=== PATIENT | female | born 1955 | race African-American/Black ===

== ENCOUNTER → 2016-12-19 | Outpatient (CLI) | payer MEDICARE, OTHER ==
[~2016-12-19] MED LIST: ABAC1TAB3 PO; ALBUAER3 INH; AMIT50TA3 PO; BENA25TA3 PO; BENA25TA6 PO; CENT50TA PO; FERR324T4 PO; FLUT50SP EACH NARE; GENTDRO EACH EYE; HYDR-3675 PO; IRON27TA PO; LOSA25TA PO; ULTR50TA PO; VITA150T PO; VITATAB11 PO
[2016-12-19 07:45] LABS: HEMATOCRIT 37.3 % (35.0-46.0); MEAN CELL VOLUME 81.9 FL (80.0-100.0); MEAN CORPUSCULAR HEMOGLOBIN 25.7 PG (27.0-34.0); MEAN CORPUSCULAR HGB CONC 31.4 % (32.0-36.0); PLATELET COUNT 226 TH/MM3 (150-450); RED BLOOD COUNT 4.55 MIL/MM3 (4.00-5.30); RED CELL DISTRIBUTION WIDTH 14.7 % (11.6-17.2); WHITE BLOOD COUNT 3.2 TH/MM3 (4.0-11.0)
[2016-12-19 08:02] LABS: ALT (GPT) 22 U/L (10-53); ANION GAP 7 MEQ/L (5-15); AST (GOT) 16 U/L (15-37); BICARBONATE 28.2 MEQ/L (21.0-32.0); BLOOD UREA NITROGEN 14 MG/DL (7-18); CHLORIDE 103 MEQ/L (98-107); GLOMERULAR FILTRATION RATE 55 ML/MIN (>89); GLUCOSE,FASTING 95 MG/DL (74-99); POTASSIUM 3.8 MEQ/L (3.5-5.1); SODIUM (NA) 138 MEQ/L (136-145)
[2016-12-19 08:03] LABS: HEMO FLAGS AUTO DIFF
[2016-12-19 08:04] LABS: ALKALINE PHOSPHATASE 74 U/L (45-117); HDL CHOLESTEROL 69.9 MG/DL (40.0-60.0); LDL CHOLESTEROL 68 MG/DL (0-99); TOTAL BILIRUBIN ADULT 0.5 MG/DL (0.2-1.0)
[2016-12-19 09:21] LABS: NEUTROPHIL # MANUAL DIFF 1.2 TH/MM3 (1.8-7.7); POLYS (SEG NEUTROPHILS) 36 % (16-70); WBC DIFF SAMPLE 100
[2016-12-19 09:22] LABS: PLATELET ESTIMATE SMEAR NORMAL (NORMAL); PLATELET MORPHOLOGY NORMAL (NORMAL); SCAN/DIFF FINAL DIFF MANUAL
[2016-12-19 11:08] LABS: RAPID PLASMA REAGIN SCREEN NON-REACTIVE (NON-REACTVE)
[2016-12-19 11:57] LABS: HEPATITIS B SURFACE ANTIBODY 2.7 mIU/mL
[2016-12-20 19:52] LABS: CD4/CD8 RATIO 1.3 (0.86-5.00)
[2016-12-21 15:03] LABS: MITOGEN MINUS NIL RESULT >10.00 IU/mL (()); NIL RESULT 0.03 IU/mL (()); QUANTIFERON TB GOLD RESULT Negative (Negative)
[2016-12-22 03:50] LABS: HIV RNA COPIES LESS THAN 20.0 (()); HIV RNA LOG COPIES LESS THAN 1.30 (())
== END ==
LOC: CLAB 06:48
PROVIDERS: ATTEND Internal Medicine Infectious Disease
DX: J44.9 Chronic obstructive pulmonary disease, unspecified (principal); B20 Human immunodeficiency virus [HIV] disease; E55.9 Vitamin D deficiency, unspecified; I12.9 Hypertensive chronic kidney disease with stage 1 through stage 4 chronic kidney disease, or unspecified chronic kidney disease; N18.2 Chronic kidney disease, stage 2 (mild); Z01.419 Encounter for gynecological examination (general) (routine) without abnormal findings; Z79.2 Long term (current) use of antibiotics
CPT/HCPCS: 36415; 80053; 80061; 82306; 85007; 85027; 86317; 86355; 86357; 86359; 86360; 86480; 86592; 86695; 86696; 86777; 86778; 87536

== ENCOUNTER → 2016-12-28 | Outpatient (CLI) | payer MEDICARE, OTHER ==
[2016-12-28 08:12] LABS: BASOPHIL % 0.4 % (0.0-2.0); HEMATOCRIT 34.5 % (35.0-46.0); HEMO FLAGS DIFF FINAL; LYMPH % 54.9 % (9.0-44.0); LYMPHOCYTE # 1.8 TH/MM3 (1.0-4.8); MEAN CELL VOLUME 81.8 FL (80.0-100.0); MEAN CORPUSCULAR HEMOGLOBIN 26.6 PG (27.0-34.0); MEAN CORPUSCULAR HGB CONC 32.5 % (32.0-36.0); MONO % 11.3 % (0.0-8.0); NEUT % 32.4 % (16.0-70.0); PLATELET COUNT 179 TH/MM3 (150-450); RED BLOOD COUNT 4.22 MIL/MM3 (4.00-5.30); RED CELL DISTRIBUTION WIDTH 15.3 % (11.6-17.2); WHITE BLOOD COUNT 3.2 TH/MM3 (4.0-11.0)
[2016-12-28 08:18] LABS: BLOOD, URINE NEG (NEG); GLUCOSE,URINE NEG (NEG); KETONE, URINE NEG (NEG); NITRITE,URINE NEG (NEG); SQUAMOUS EPITHELIAL CELL URINE <1 /hpf (0-5); URINE COLOR YELLOW (YELLW/STRAW)
[2016-12-28 08:34] LABS: BICARBONATE 29.7 MEQ/L (21.0-32.0); POTASSIUM 3.9 MEQ/L (3.5-5.1)
== END ==
LOC: CLAB 07:37
PROVIDERS: ATTEND Internal Medicine Nephrology
DX: N18.3 Chronic kidney disease, stage 3 (moderate) (principal)
CPT/HCPCS: 36415; 80048; 81001; 85025

== ENCOUNTER 2017-03-03 01:38 | Observation (INO) | payer MEDICARE, OTHER ==
[~2017-03-03] VITALS: Ht 175.3 cm; Wt 72.9 kg
[2017-03-03] VITALS (9 sets, daily range): BP systolic 136–163; BP diastolic 84–95; PULSE 78–98; RESP 16–18; TEMP 96.4–98; O2SAT 98–100
[~2017-03-03 01:38] MED LIST changes: -BENA25TA3 PO; -FERR324T4 PO; -ULTR50TA PO; -VITATAB11 PO
[2017-03-03] MEDS ORDERED: REST0.05 EACH EYE (01:50)
[2017-03-03] MEDS ORDERED: ONDANSETRON HCL 4 MG/2 ML VIAL IVP ONE (02:00)
[2017-03-03] MEDS ORDERED: SODIUM CHLORID 0.9% 500 ML INJ 500 ML IV ONE (02:00)
[2017-03-03] MEDS ORDERED: SODIUM CHLORIDE 0.9% FLUSH 10 ML FLUSH IV FLUSH PRN ×2 (02:00→07:30)
[2017-03-03] MEDS ORDERED: MORPHINE SULFATE 4 MG/ML INJ IV PUSH ONE (02:00)
[2017-03-03] MEDS ORDERED: MORPHINE SULFATE 8 MG/ML INJ ONE (02:02)
--- NOTE | 2017-03-03 02:04 | PD ---
HPI Chief Complaint: Abdominal Pain Time Seen by Provider: 01:57 Travel History International Travel<30 days: No Contact w/Intl Traveler<30days: No Traveled to known affect area: No History of Present Illness HPI Patient is a 61-year-old female presents emergency department for evaluation of nausea vomiting and epigastric abdominal pain. Patient states pain is been going on for the past few hours after eating tater tots. is here who also a tater tots and is asymptomatic. Patient is been having vomiting mostly clear but minimally green tinted. States is never happened to her before. States she does have a history of some difficulty stooling and has to press on her left side: When she stools. She denies any diarrhea denies any fever. Denies any chest pain or shortness of breath. States the pain radiates to her back and her right shoulder. PFSH Past Medical History Anemia: Yes Arthritis: Yes Blood Disorders: Yes Anxiety: Yes Cardiovascular Problems: Yes COPD: Yes Diminished Hearing: No Hypertension: Yes Immune Disorder: Yes (HIV+) Musculoskeletal: Yes Neurologic: Yes (idiopathic progressive polyneuropathy) Respiratory: Yes Pneumonia: Yes Menopausal: Yes Past Surgical History Abdominal Surgery: Yes (EXP LAP) Section: Yes Other Surgery: Yes (right axilla biopsy) Social History Alcohol Use: Yes (OCCASSIONAL) Tobacco Use: No (quit 2009) Substance Use: No Allergies-Medications (Allergen,Severity, Reaction): Coded Allergies: Dilaudid (Verified Allergy, Mild, 03/03/17) PT STATES SHE GETS VERY HOT AND FEELS LIKE HER HEAD IS GOING TO EXPLODE. Reported Meds & Prescriptions Reported Meds & Active Scripts Active Fluticasone Nasal [place] 50 Mcg/Act Naspr 1 [place] EACH NARE PRN 50 mcg/spray Losartan (Losartan Potassium) 25 Mg Tab 25 Mg PO DAILY Amitriptyline (Amitriptyline HCl) 50 Mg Tab 50 Mg PO HS Proair Hfa 8.5 GM Inh (Albuterol Sulfate) 90 Mcg/Act Aer 1 Puff INH Q4H PRN 108 mcg/actuation Reported Restasis Opth 0.05% (Cyclosporine Opth 0.05%) 0.05% Emul 1 Drop EACH EYE BID H[place] ER (Hydrocodone ER) 20 Mg Bernard 10 Mg PO HALF TAB DAILY Genteal Mild To Moderate Opth Drops (Hypromellose) 0.3% Drops 1 Drop EACH EYE PRN PRN Iron (Ferrous Gluconate) 27 Mg Tab 65 Mg PO EVERY OTHER DAY Super B Complex (Vitamin B Complex Vit C No.4) 150 Mg Tablet 1 Tab PO DAILY Centravites 50 Plus (Multiple Vitamins W/ Minerals) 1 Tab Tab 1 Tab PO DAILY Triumeq (Vovtylmo-Ycdiksqpqfzp-Ejkxtatjkn) 600-50-300 Mg Tab 1 Tab PO DAILY Hazardous agent; use appropriate precautions for handling & disposal. Review of Systems Except as stated in HPI: all other systems reviewed are Neg Physical Exam Narrative GENERAL: Well-developed well-nourished leaning forward actively vomiting. SKIN: Focused skin assessment warm/dry. HEAD: Atraumatic. Normocephalic. EYES: Pupils equal and round. No scleral icterus. No injection or drainage. ENT: No nasal bleeding or discharge. Mucous membranes pink and moist. NECK: Trachea midline. No JVD. CARDIOVASCULAR: Regular rate and rhythm. No murmur appreciated. RESPIRATORY: No accessory muscle use. Clear to auscultation. Breath sounds equal bilaterally. GASTROINTESTINAL: Abdomen soft, moderately tender in the epigastric and right upper quadrant, nondistended. Hepatic and splenic margins not palpable. Sotomayor sign weakly positive. No CVA tenderness. MUSCULOSKELETAL: No obvious deformities. No clubbing. No cyanosis. No edema. NEUROLOGICAL: Awake and alert. No obvious cranial nerve deficits. Motor grossly within normal limits. Normal speech. PSYCHIATRIC: Appropriate mood and affect; insight and judgment normal. Data Data Last Documented VS Vital Signs Date Time Temp Pulse Resp B/P Pulse Ox O2 Delivery O2 Flow Rate FiO2 03/03/17 01:51 94 18 151/84 100 Room Air 03/03/17 01:40 98.0 Orders Complete Blood Count With Diff (03/03/17 01:57) Comprehensive Metabolic Panel (03/03/17 01:57) Lipase (03/03/17 01:57) Prothrombin Time / Inr (Pt) (03/03/17 01:57) Act Partial Throm Time (Ptt) (03/03/17 01:57) Urinalysis - C+S If Indicated (03/03/17 01:57) Iv Access Insert/Monitor (03/03/17 01:57) Ecg Monitoring (03/03/17 01:57) Oximetry (03/03/17 01:57) Ondansetron Inj (Zofran Inj) (03/03/17 02:00) Sodium Chloride 0.9% Flush (Ns Flush) (03/03/17 02:00) Sodium Chlorid 0.9% 500 Ml Inj (Ns 500 M (03/03/17 02:00) Morphine Inj (Morphine Inj) (03/03/17 02:00) Morphine Inj (Morphine Inj) (03/03/17 02:02) Ct Abd/Pel W Iv Contrast(Rout) (03/03/17 ) Iohexol 350 Inj (Omnipaque 350 Inj) (03/03/17 03:56) Hydromorphone Pf Inj (Dilaudid Pf Inj) (03/03/17 05:15) Morphine Inj (Morphine Inj) (03/03/17 05:15) Us Abdomen Gallbladder (03/03/17 ) Admit Order (Ed Use Only) (03/03/17 ) Consult General Surgery (03/03/17 ) Labs Laboratory Tests Test 03/03/17 03/03/17 02:05 03:10 White Blood Count 6.8 TH/MM3 Red Blood Count 4.38 MIL/MM3 Hemoglobin 11.6 GM/DL Hematocrit 35.8 % Mean Corpuscular Volume 81.8 FL Mean Corpuscular Hemoglobin 26.6 PG Mean Corpuscular Hemoglobin 32.5 % Concent Red Cell Distribution Width 15.5 % Platelet Count 209 TH/MM3 Mean Platelet Volume 9.0 FL Neutrophils (%) (Auto) 68.8 % Lymphocytes (%) (Auto) 21.3 % Monocytes (%) (Auto) 9.0 % Eosinophils (%) (Auto) 0.5 % Basophils (%) (Auto) 0.4 % Neutrophils # (Auto) 4.7 TH/MM3 Lymphocytes # (Auto) 1.4 TH/MM3 Monocytes # (Auto) 0.6 TH/MM3 Eosinophils # (Auto) 0.0 TH/MM3 Basophils # (Auto) 0.0 TH/MM3 CBC Comment DIFF FINAL Differential Comment Prothrombin Time 10.5 SEC Prothromb Time International 1.0 RATIO Ratio Activated Partial 28.8 SEC Thromboplast Time Sodium Level 139 MEQ/L Potassium Level 3.5 MEQ/L Chloride Level 101 MEQ/L Carbon Dioxide Level 33.6 MEQ/L Anion Gap 4 MEQ/L Blood Urea Nitrogen 14 MG/DL Creatinine 1.15 MG/DL Estimat Glomerular Filtration 58 ML/MIN Rate Random Glucose 106 MG/DL Calcium Level 9.2 MG/DL Total Bilirubin 0.9 MG/DL Aspartate Amino Transf 71 U/L (AST/SGOT) Alanine Aminotransferase 44 U/L (ALT/SGPT) Alkaline Phosphatase 113 U/L Total Protein 8.3 GM/DL Albumin 3.9 GM/DL Lipase 192 U/L Urine Color YELLOW Urine Turbidity HAZY Urine pH 8.5 Urine Specific [place] 1.016 Urine Protein 30 mg/dL Urine Glucose (UA) NEG mg/dL Urine Ketones NEG mg/dL Urine Occult Blood NEG Urine Nitrite NEG Urine Bilirubin NEG Urine Urobilinogen LESS THAN 2.0 MG/DL Urine Leukocyte Esterase NEG Urine WBC 1 /hpf Urine Squamous Epithelial <1 /hpf Cells Microscopic Urinalysis Comment CULT NOT INDICATED MDM Medical Decision Making Medical Screen Exam Complete: Yes Emergency Medical Condition: Yes Differential Diagnosis Pancreatitis, cholecystitis, gastritis, gastroenteritis, bowel obstruction, constipation. Narrative Course Patient roomed in ER. Still having pain after two doses of morphine. Fairly classic for cholecystitis (RUQ, to shoulder and back, bilious emesis). CT findings discussed with Dr. Souza. To be admitted obs to [facility] for pain control and surgical consultation. Diagnosis Primary Impression: Cholecystitis Admitting Information Admitting Physician Requests: Observation Condition: Stable Erwin Prince MD Mar 03, 2017 02:04
[2017-03-03 02:33] LABS: AUTOMATED NEUTROPHIL # 4.7 TH/MM3 (1.8-7.7); BASOPHIL % 0.4 % (0.0-2.0); EOSINOPHIL % 0.5 % (0.0-4.0); HEMATOCRIT 35.8 % (35.0-46.0); HEMO FLAGS DIFF FINAL; LYMPH % 21.3 % (9.0-44.0); LYMPHOCYTE # 1.4 TH/MM3 (1.0-4.8); MEAN CELL VOLUME 81.8 FL (80.0-100.0); MEAN CORPUSCULAR HEMOGLOBIN 26.6 PG (27.0-34.0); MEAN CORPUSCULAR HGB CONC 32.5 % (32.0-36.0); NEUT % 68.8 % (16.0-70.0); PLATELET COUNT 209 TH/MM3 (150-450); RED BLOOD COUNT 4.38 MIL/MM3 (4.00-5.30); RED CELL DISTRIBUTION WIDTH 15.5 % (11.6-17.2); WHITE BLOOD COUNT 6.8 TH/MM3 (4.0-11.0)
[2017-03-03 02:43] LABS: APTT (PATIENT) 28.8 SEC (24.3-30.1); PROTHROMBIN TIME - PATIENT 10.5 SEC (9.8-11.6)
[2017-03-03 02:56] LABS: ALT (GPT) 44 U/L (10-53); ANION GAP 4 MEQ/L (5-15); AST (GOT) 71 U/L (15-37); BICARBONATE 33.6 MEQ/L (21.0-32.0); BLOOD UREA NITROGEN 14 MG/DL (7-18); CHLORIDE 101 MEQ/L (98-107); GLOMERULAR FILTRATION RATE 58 ML/MIN (>89); POTASSIUM 3.5 MEQ/L (3.5-5.1); SODIUM (NA) 139 MEQ/L (136-145)
[2017-03-03 02:57] LABS: ALKALINE PHOSPHATASE 113 U/L (45-117); TOTAL BILIRUBIN ADULT 0.9 MG/DL (0.2-1.0)
[2017-03-03 03:35] LABS: BLOOD, URINE NEG (NEG); COMMENT (UR) CULT NOT INDICATED; CULTURE IF INDICATED CULT NOT INDICATED; GLUCOSE,URINE NEG (NEG); KETONE, URINE NEG (NEG); NITRITE,URINE NEG (NEG); PH, URINE 8.5 (5.0-8.5); SQUAMOUS EPITHELIAL CELL URINE <1 /hpf (0-5); URINE COLOR YELLOW (YELLW/STRAW)
[2017-03-03] MEDS ORDERED: IOHEXOL 350 MG/ML 10 ML VIAL (for RAD DIAG) IV ONE (03:56)
--- NOTE | 2017-03-03 04:54 | RADRPT ---
EXAM DATE/TIME: 03/03/2017 03:51 [facility] COMPARISON: CT ABDOMEN & PELVIS W/O CONTRAST, May 27, 2012, 11:52. INDICATIONS : Abdominal pain radiating to back. IV CONTRAST: 90 cc Omnipaque 350 (iohexol) IV ORAL CONTRAST: No oral contrast ingested. RADIATION DOSE: 6.71 CTDIvol (mGy) MEDICAL HISTORY : HIV. Hypertension. Chronic obstructive pulmonary disease. SURGICAL HISTORY : section. ENCOUNTER: Initial ACUITY: 1 day PAIN SCALE: 7/10 LOCATION: abdomen TECHNIQUE: Volumetric scanning of the abdomen and pelvis was performed. Using automated exposure control and ad justment of the mA and/or kV according to patient size, radiation dose was kept as low as reasonably achievable to obtain optimal diagnostic quality images. DICOM format image data is available electro nically for review and comparison. FINDINGS: LOWER LUNGS: Minimal dependent atelectatic changes LIVER: Homogeneous density without lesion. Mild intra-and extrahepatic biliary ductal dilatation with CBD me asuring upwards at 8 mm in diameter. Etiology is uncertain. There is also some distention of the gall bladder lumen. SPLEEN: Normal size without lesion. PANCREAS: Within normal limits. KIDNEYS: Normal in size and shape. There is no mass, stone or hydronephrosis. ADRENAL GLANDS: Within normal limits. VASCULAR: There is no aortic aneurysm. BOWEL/MESENTERY: Volume of stool throughout the colon with decompression of the distal descending and sigmoid portions characteristic of some degree of constipation. ABDOMINAL WALL: Within normal limits. RETROPERITONEUM: There is no lymphadenopathy. BLADDER: No wall thickening or mass. REPRODUCTIVE: Within normal limits. Uterus is slightly retroflexed. Multiple phleboliths in the deep pelvis. INGUINAL: There is no lymphadenopathy or hernia. MUSCULOSKELETAL: Within normal limits for patient age. CONCLUSION: 1. There is some distention of the biliary tree with intra-and extra prominence as well as mild gallb ladder distention as above. CBD measures upwards of 8 mm in diameter. If patient's symptoms are refer able to right upper abdominal quadrant, HIDA scan may be useful to evaluate biliary function. 2. Large amount of stool throughout the colon characteristic of some degree of constipation. Red Ayala MD on March 03, 2017 at 4:41 Board Certified Radiologist. This report was verified electronically.
[2017-03-03] MEDS ORDERED: MORPHINE SULFATE 8 MG/ML INJ IV PUSH ONE (05:15)
[2017-03-03] MEDS ORDERED: HYDROmorphone HCL PF 1 MG/ML VIAL IV PUSH ONE (05:15)
--- NOTE | 2017-03-03 07:19 | HHI.HP ---
[facility] Service [facility] service Dr. Vanessa attending Primary Care Physician No Primary Care Physician Admission Diagnosis RUQ abdominal pain, Cholecystitis. Diagnoses: International Travel<30 Days: No Contact w/Intl Traveler<30days: No Known Affected Area: No History of Present Illness Ms. Solis is a 53-year-old female with a history significant for HIV, hypertension, COPD, anxiety, and neuropathy who presents to the ED after a night of severe epigastric and back pain. She describes the pain as excruciating , 12/10 in severity, achy, and associated with a meal. She had at 8:30pm corned beef and potatoes and this was her most recent meal. She had 2 episodes of vomiting at home and one episode of vomiting in the ED. He did not look at any vomitus but the ED physician stated it looked bilious on signout. She has a history of chronic left abdominal pain which was worked up in [address] scan which was negative, and she asserts that this pain is different. Denies fever, chills. She has shortness of breath at baseline and this has not changed. Chronic neck and back pain due to bulging disc has not changed either. She had episodes of vomiting. She denies any blood in her stools. She has had abdominal surgery for and exploratory laparotomy for cyst of the ovary, but has not had her gallbladder removed. Her last office visit was January [address] Loya in the [facility]. Gastroenterology work-up for left abd pain last year - constipated, no other abnormalities. Stools usually soft, uses enemas once every 3-4 months. Her last stool was yesterday evening and it was "hard pellets" and look like stones. She tried multiple medications to relieve her symptoms including and an acid, baking soda, enema, Pepto-Bismol without any relief. Come in to the ED due to her intractable pain. (Radha Cyr MD R1) Review of Systems Constitutional: COMPLAINS OF: Weight gain, DENIES: Fever, Chills, Change in appetite Endocrine: DENIES: Abnorml menstrual pattern Eyes: DENIES: Blurred vision, Diplopia Ears, nose, mouth, throat: COMPLAINS OF: Oral lesions (roof of mouth irritated ), DENIES: Hearing loss, Vertigo, Throat pain, Ear Pain Respiratory: COMPLAINS OF: Shortness of breath, DENIES: Cough, Wheezing Cardiovascular: COMPLAINS OF: Chest pain, DENIES: Palpitations, Syncope Gastrointestinal: COMPLAINS OF: Abdominal pain, Vomiting, DENIES: Black stools , Bloody stools Genitourinary: DENIES: Urinary frequency, Urinary incontinence, Urgency, Hematuria, Dysuria Musculoskeletal: COMPLAINS OF: Back pain, Neck pain (chronic bulging discs right side) Integumentary: DENIES: Pruritus, Rash Hematologic/lymphatic: DENIES: Bruising, Lymphadenopathy Neurologic: DENIES: Abnormal gait, Headache, Poor Balance Psychiatric: DENIES: Anxiety, Depression (Radha Cyr MD R1) Past Family Social History Past Medical History Anabaptism Does not want blood products HIV (2006, followed by [facility] in [place]) HTN (cough with LILIYA inhibitor) Polyneuropathy (on Amytriptyline) Fibromyalgia COPD Bulging discs C5-7 Anemia History of Vitamin B-12 deficiency History of upper GI bleed (01/2015) Generalized anxiety disorder Other Physicians/Providers Involved in the Care of Patient: Previous PCP- Luis Fernando Gómez Neurology- Sherrill Lyle HIV Specialist- [place], [place] Hematology- Ayesha Araujo Nephrology- Vel Srivastava Roll Wrapper- Billy Heath Past Surgical History ExLap 1980 for cyst near ovary C/S 1985 EGD 02/08 upper GI bleed Reported Medications Reported Meds & Active Scripts Active Fluticasone Nasal [place] 50 Mcg/Act Naspr 1 [place] EACH NARE PRN 50 mcg/spray Losartan (Losartan Potassium) 25 Mg Tab 25 Mg PO DAILY Amitriptyline (Amitriptyline HCl) 50 Mg Tab 50 Mg PO HS Proair Hfa 8.5 GM Inh (Albuterol Sulfate) 90 Mcg/Act Aer 1 Puff INH Q4H PRN 108 mcg/actuation Reported Restasis Opth 0.05% (Cyclosporine Opth 0.05%) 0.05% Emul 1 Drop EACH EYE BID [place] ER (Hydrocodone ER) 20 Mg Bernard 10 Mg PO HALF TAB DAILY [place]ente[place] Mild To Moderate Opth Drops (Hypromellose) 0.3% Drops 1 Drop EACH EYE PRN PRN Iron (Ferrous Gluconate) 27 Mg Tab 65 Mg PO EVERY OTHER DAY Super B Complex (Vitamin B Complex Vit C No.4) 150 Mg Tablet 1 Tab PO DAILY Centravites 50 Plus (Multiple Vitamins W/ Minerals) 1 Tab Tab 1 Tab PO DAILY Triumeq (Ohrkbust-Pfbcnqiksinn-Fgjjljucyp) 600-50-300 Mg Tab 1 Tab PO DAILY Hazardous agent; use appropriate precautions for handling & disposal. ( Radha Cyr MD R1) Allergies: Coded Allergies: Dilaudid (Verified Allergy, Mild, 03/03/17) PT STATES SHE GETS VERY HOT AND FEELS LIKE HER HEAD IS GOING TO EXPLODE. Active Ordered Medications Inpatient Medications Acetaminophen (Tylenol) 650 mg Q4H PRN PO TEMP > 100.4; Start 03/03/17 at 07:30 Bisacodyl (Dulcolax Supp) 10 mg DAILY PRN RECTAL SEVERE CONSITIPATION; Start at 07:30; Status UNV Hydromorphone HCl (Dilaudid Pf Inj) 0.5 mg ONCE ONCE IV PUSH ; Start 03/03/17 at 05:15; Stop 03/03/17 at 05:15; Status DC Lactulose (Lactulose Liq) 30 ml DAILY PRN PO SEVERE CONSITIPATION; Start at 07:30; Status UNV Magnesium Hydroxide (Milk Of Magnesia Liq) 30 ml Q12H PRN PO MILD - MODERATE CONSTIPATION; Start 03/03/17 at 07:30; Status UNV Morphine Sulfate (Morphine Inj) 4 mg Q3H PRN IV Pain 3-10; Start 03/03/17 at 07: 30; Status UNV Morphine Sulfate 6 mg 6 mg ONCE ONCE IV PUSH Last administered on 03/03/17t 05: 16; Start 03/03/17 at 05:15; Stop 03/03/17 at 05:16; Status DC Naloxone HCl (Narcan Inj) 0.4 mg UNSCH PRN IV SEE LABEL COMMENTS; Start at 07:30; Status UNV Ondansetron HCl (Zofran Inj) 4 mg Q6H PRN IVP NAUSEA OR VOMITING; Start at 07:30 Senna/Docusate Sodium (Miriam-Colace) 1 tab BID PO ; Start 03/03/17 at 09:00; Status UNV Sennosides (Senokot) 17.2 mg Q12H PRN PO MODERATE - SEVERE CONSTIPATION; Start 03/03/17 at 07:30; Status UNV Sodium Chloride (NS 1000 ml Inj) 1,000 ml @ 125 mls/hr Q8H IV ; Start 03/03/17 at 07:23 Sodium Chloride (NS 500 ml Inj) 500 ml @ 500 mls/hr BOLUS ONCE IV Last administered on 03/03/17 02:08; Start 03/03/17 at 02:00; Stop 03/03/17 at 02:59; Status DC Sodium Chloride (NS Flush) 2 ml BID IV FLUSH ; Start 03/03/17 at 09:00 Sodium Chloride 2 ml 2 ml UNSCH PRN IV FLUSH FLUSH AFTER USING IV ACCESS Last administered on 03/03/17 02:09; Start 03/03/17 at 02:00 Family History Father: from "natural causes" Mother: DM, HTN, vertigo Siblings: 1 brother- unknown, 2 sisters- Lupus, heart arrhythmia Children: 1 daughter- healthy Social History Marital Status: Living Situation: [place], [place] Education: 2 years of college Work history: Disability for widespread Idiopathic Polyneuropathy Tobacco: quit 08/05, 1 PPD x 40 years Alcohol: 1-2 drinks/month Illicit drug use: History of cocaine abuse and alcohol abuse (last use 10/09/09) is [place]. His number [phone] Jehovah's Witnessno blood products (Radha Cyr MD R1) Physical Exam Vital Signs Vital Signs Date Time Temp Pulse Resp B/P Pulse Ox O2 Delivery O2 Flow Rate FiO2 03/03/17 01:51 94 18 151/84 100 Room Air 03/03/17 01:40 98.0 98 16 160/95 100 Room Air Physical Exam GENERAL: Thin, well appearing -[place] female, lying in bed. No apparent distress but is status post high-dose narcotic. He is alert. SKIN: Warm and dry. No obvious rashes. HEAD: Atraumatic. Normocephalic. EYES: Pupils equal and round. No scleral icterus. No injection or drainage. ENT: No nasal bleeding or discharge. Mucous membranes pink and moist. NECK: Trachea midline. No JVD. CARDIOVASCULAR: Regular rate and rhythm. No murmurs, gallops, or rubs. RESPIRATORY: No accessory muscle use. Clear to auscultation without rales or rhonchi, no gallop, no crackles. Breath sounds equal bilaterally. GASTROINTESTINAL: Abdomen soft, tender to palpation in all 4 quadrants. Bowel sounds are normal. The abdomen is nondistended. Sotomayor sign negative. Hepatic and splenic margins not palpable. There is a midline vertical scar in the lower abdomen, well-healed.. MUSCULOSKELETAL: Extremities without clubbing, cyanosis, or edema. No obvious deformities. NEUROLOGICAL: Awake and alert. Cranial nerves II12 intact. Motor grossly within normal limits. Five out of 5 muscle strength in the arms and legs. Normal speech. PSYCHIATRIC: Appropriate mood and affect; insight and judgment normal. Laboratory Laboratory Tests Test 03/03/17 03/03/17 02:05 03:10 White Blood Count 6.8 Red Blood Count 4.38 Hemoglobin 11.6 Hematocrit 35.8 Mean Corpuscular Volume 81.8 Mean Corpuscular Hemoglobin 26.6 Mean Corpuscular Hemoglobin 32.5 Concent Red Cell Distribution Width 15.5 Platelet Count 209 Mean Platelet Volume 9.0 Neutrophils (%) (Auto) 68.8 Lymphocytes (%) (Auto) 21.3 Monocytes (%) (Auto) 9.0 Eosinophils (%) (Auto) 0.5 Basophils (%) (Auto) 0.4 Neutrophils # (Auto) 4.7 Lymphocytes # (Auto) 1.4 Monocytes # (Auto) 0.6 Eosinophils # (Auto) 0.0 Basophils # (Auto) 0.0 CBC Comment DIFF FINAL Differential Comment Prothrombin Time 10.5 Prothromb Time International 1.0 Ratio Activated Partial 28.8 Thromboplast Time Sodium Level 139 Potassium Level 3.5 Chloride Level 101 Carbon Dioxide Level 33.6 Anion Gap 4 Blood Urea Nitrogen 14 Creatinine 1.15 Estimat Glomerular Filtration 58 Rate Random Glucose 106 Calcium Level 9.2 Total Bilirubin 0.9 Aspartate Amino Transf 71 (AST/SGOT) Alanine Aminotransferase 44 (ALT/SGPT) Alkaline Phosphatase 113 Total Protein 8.3 Albumin 3.9 Lipase 192 Urine Color YELLOW Urine Turbidity HAZY Urine pH 8.5 Urine Specific [place] 1.016 Urine Protein 30 Urine Glucose (UA) NEG Urine Ketones NEG Urine Occult Blood NEG Urine Nitrite NEG Urine Bilirubin NEG Urine Urobilinogen LESS THAN 2.0 Urine Leukocyte Esterase NEG Urine WBC 1 Urine Squamous Epithelial <1 Cells Microscopic Urinalysis Comment CULT NOT INDICATED (Radha Cyr MD R1) Result Diagram: 03/03/17 0205 03/03/17 0205 Imaging Last Impressions Abdomen/Pelvis CT 03/03/17 0000 Signed Impressions: Service Date/Time: Friday, March 03, 2017 03:51 - CONCLUSION: 1. There is some distention of the biliary tree with intra-and extra prominence as well as mild gallbladder distention as above. CBD measures upwards of 8 mm in diameter. If patient's symptoms are referable to right upper abdominal quadrant, HIDA scan may be useful to evaluate biliary function. 2. Large amount of stool throughout the colon characteristic of some degree of constipation. Red Ayala MD (Radha Cyr MD R1) Assessment and Plan Assessment and Plan 61-year-old female HIV, COPD, chronic abdominal pain presents with epigastric abdominal pain and CT showing biliary tree dilation. Patient is status post 12 mg morphine as well as a dose of Dilaudid in the ED with improvement of her symptoms only after these interventions. She'll be admitted for pain management , further workup, as well as surgical evaluation. Code Status Full code Anabaptism - patient does not want blood products Discussed Condition With Dr. Prater (Radha Cyr MD R1) Attending Attestation Patient seen and examined. Case reviewed and discussed with the resident team. Agree with plan of care as discussed with me and documented in the resident note. 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 She reports Fe deficiency anemia from a GI bleed in the past but has been stable recently. She gives a history of "stomach cramps" on occasion for months or years about a half hour after she eats certain foods. She would be happy to have a cholecystectomy if surgery decides to proceed. (Joan Vanessa MD) Problem List: (1) Cholecystitis Status: Acute Plan: Patient presents with epigastric pain, nausea, vomiting after meal. Highly suggestive of biliary pathology. Clinical exam in the ED suggestive of positive Sotomayor sign prior to pain medication. CBD on CT noncontrast is 8 mm, dilated. Plan: Pain control morphine 4 mg IV every 3 hours as needed IV fluids at 125 mL per hour NPO for now Gen. surgery consulted by the ED physician Ultrasound abdomen pending May require HIDA scan today for further workup (2) HIV disease Status: Chronic Plan: Patient is on ARV at home and sees HIV specialist noted above. WBC is within normal limits, in the lower range. She states her last CD4 count was excellent. Plan: * Likely continue ARV in hospital * She is nothing by mouth right now * Restart ARV as indicated (3) Dry eyes, bilateral Status: Acute Plan: Continue Restasis (4) COPD (chronic obstructive pulmonary disease) Status: Acute Plan: Patient has chronic COPD and is only on albuterol inhaler/nebulizer at home. She is satting well on room air and lung exam is unremarkable in the ED. She states she has chronic cough, not witnessed on exam today. Plan: Monitor vital signs Albuterol every 4 hours as needed nebulizer Add albuterol inhaler as indicated Consider referral for further controller medications as outpatient (5) Neuropathy Status: Chronic Plan: This is chronic. Patient is on no specific medication for this at this time. We'll monitor. (6) Anxiety Status: Acute Plan: Noted. Patient is on amitriptyline but no other mood-modifying medications. We'll continue amitriptyline after patient is no longer NPO (7) Iron deficiency anemia Status: Acute Plan: H&H is within normal limits today. We'll hold iron. (8) Fluids/Electrolytes/Nutrition/Prophylaxis Status: Acute Plan: Fluids: NS @ 125ml/hr Electrolytes: monitor and replete as needed Nutrition: heart-healthy diet DVT Prophylaxis: Early ambulation. Holding anticoagulation due to possible sx GI Prophylaxis: not indicated (Radha Cyr MD R1) Radha Cyr MD R1 Mar 03, 2017 07:19 Joan Vanessa MD Mar 03, 2017 13:20
[2017-03-03] MEDS ORDERED: BISACODYL 10 MG SUPP RECTAL PRN (07:30)
[2017-03-03] MEDS ORDERED: SENNOSIDES 8.6 MG TAB PO PRN (07:30)
[2017-03-03] MEDS ORDERED: NALOXONE HCL 0.4 MG/ML AMP IV PRN ×2 (07:30)
[2017-03-03] MEDS ORDERED: MAGNESIUM HYDROXIDE SUSP 30 ML CUP PO PRN (07:30)
[2017-03-03] MEDS ORDERED: ACETAMINOPHEN 325 MG TAB PO PRN (07:30)
[2017-03-03] MEDS ORDERED: RESP: ALBUTEROL 2.5 MG/3 ML NEB (PRN) NEB (07:45)
[2017-03-03] MEDS: SODIUM CHLORIDE 0.9% FLUSH 10 ML FLUSH IV FLUSH SCH ×2 (08:51→21:00)
[2017-03-03] MEDS: SODIUM CHLOR 0.9% 1000 ML INJ 1,000 ML IV SCH ×3 (08:51→23:23)
--- NOTE | 2017-03-03 08:51 | RADRPT ---
EXAM DATE/TIME: 03/03/2017 08:08 [facility] COMPARISON: No previous studies available for comparison. INDICATIONS : Right upper quadrant pain. MEDICAL HISTORY : Chronic obstructive pulmonary disease. Hypertension. Arthritis. Pneumonia. Dyspnea. Fibromyalgia. HIV +. Anemia. Osteoarthritis. SURGICAL HISTORY : section. ENCOUNTER: Initial ACUITY: 4-6 days PAIN SCORE: 5/10 LOCATION: Right upper quadrant MEASUREMENTS: LIVER: 16.1 cm length COMMON DUCT: 8 mm RIGHT KIDNEY: 9.5 x 3.6 x 4.5 cm FINDINGS: LIVER: Normal echotexture without focal lesion or ductal dilatation. COMMON DUCT: No intraluminal mass or stone visualized. Mildly prominent at 8 mm. GALLBLADDER: Contains no stones, demonstrates no wall thickening but there is some very questionable pericholecys tic fluid. PANCREAS: The visualized portions are within normal limits. RIGHT KIDNEY: No evidence of hydronephrosis, stone, or mass. CONCLUSION: On a few images there is questionable pericholecystic fluid although the gallbladder wall is normal a nd there are no gallstones noted. Mildly prominent CBD at 8 mm. Kishore Tirado MD on March 03, 2017 at 8:48 Board Certified Radiologist. This report was verified electronically.
[2017-03-03] MEDS: DOCUSATE SODIUM 50 MG/SENNA 8.6 MG TAB PO SCH ×2 (09:00→21:00)
[2017-03-03] MEDS: MORPHINE SULFATE 4 MG/ML INJ IV PRN ×2 (11:49→21:34)
--- NOTE | 2017-03-03 11:57 | HHI.FPPN ---
Addendum to progress note ADDENDUM Reason for addendum: Additonal documentation Additional information Patient seen and evaluated 03/03/17 at 11:30 AM HPI: Patients abdominal pain is improved since getting morphine. When she gets the pain it is described as diffuse epigastric and lower quadrant pain. Denies fevers or chills. Pain is associated with meals and has been occurring for the past several month 20-30 minutes after eating. She denies blood in her stool, black stools, or diarrhea. Her nausea has resolved. Objective: AFVSS GEN: NAD HEENT: EOM intact, edentulous CV: RRR, no murmurs RESP: CTAB anteriorly GI: Slightly distended, tympanic to percussion. BS present. RUQ Tenderness + duong's sign A/P: 1) Abdominal Pain US showing possible pericholecystic fluid (without stones or wall thickening). CBD dilated to 8 mm and some distension of the biliary tree/gallbladder on CT. No leukocytosis or fevers. Etiology including CBD stone, biliary colic, cholecystitis, pancreatitis, constipation. General surgery consulted, will follow recs. NPO IVF Pain control Monitor for signs of peritonitis / acute abdomen. Appreciate assistance of specialists. senthil Vanessa. Joseph Prater MD R2 Mar 03, 2017 11:57
[2017-03-03] MEDS: ONDANSETRON HCL 4 MG/2 ML VIAL IVP PRN ×2 (15:39→22:57)
--- NOTE | 2017-03-03 21:22 | MB ---
cc: ILIANA FREEMAN MD DATE OF CONSULTATION 03/03/2017 REASON FOR CONSULTATION Rule out acute cholecystitis, right upper quadrant pain. HISTORY OF PRESENT ILLNESS The patient is a 53-year-old female, multiple medical issues including HIV and Evangelical, presented to the emergency department with epigastric and right-sided abdominal pain. She stated the pain started several hours after eating tater tots and a meal. She states the pain continued to get worse. It was initially an 8/10, currently a 4/10 after IV pain medication; worse with movement, better with lying still. The patient came to the emergency department for further workup including a CT scan showing a dilated, thick gallbladder. Surgery was consulted for further evaluation. On my exam the patient is resting comfortably. She states her pain is somewhat significant to the right upper quadrant. She does have a history of chronic abdominal pain typically on the left side of the abdomen. She does have a history of constipation. CT scan does demonstrate a heavy fecal load in her colon as well. She states this pain is different, that presented with a new onset. She denies any change in urine color or stool color. She has had a couple episodes of vomiting. Denies diarrhea but has a history of constipation for which she uses occasional enemas for. PAST MEDICAL HISTORY HIV, hypertension, COPD, anxiety, neuropathy, Evangelical. Fibromyalgia, bulging disc, anemia, SIADH, pneumonia. Cervical PAST SURGICAL HISTORY Exploratory laparotomy for ovary, . SOCIAL HISTORY Denies EtOH. History of drug use, history of smoking, denies current use, however. FAMILY HISTORY Mother with diabetes, hypertension. MEDICATIONS See EMR. ALLERGIES NKDA REVIEW OF SYSTEMS GENERAL: The patient denies headache or pain. HEENT: Denies eye pain, ear pain. NECK: Denies swelling or pain. RESPIRATORY: Denies palpitations or pain or cough or wheeze. CARDIOVASCULAR: Denies tachycardia or chest pain. ABDOMEN: Complains of nausea, vomiting, abdominal pain. MUSCULOSKELETAL: Denies edema or pain. NEUROLOGIC: Denies weakness. PSYCH: Denies change in mood or affect. INTEGUMENT: Denies recent masses or lesions. PHYSICAL EXAMINATION GENERAL: The patient no acute distress. VITAL SIGNS: Temperature 98, pulse 98, respirations 16, blood pressure is 160/95, pulse ox 100% on room air. HEENT: PERRLA, pupils equal, round, reactive. NECK: Supple. Trachea midline. LUNGS: Bilateral expansion. Clear. HEART: S1-S2 regular. ABDOMEN: Soft. Well-healed surgical scars. Positive tenderness to palpation right upper quadrant. Positive tenderness to palpation in the left side of abdomen. BACK: Normal curvature. No step-off. EXTREMITIES: Warm, well-perfused. PSYCH: Appropriate mood and affect. LABORATORY AND DIAGNOSTIC DATA WBC 6.8, hemoglobin 11.6, hematocrit 35.8, platelets 209, sodium 139, potassium 3.5, chloride 101, BUN 14, creatinine 1.1, calcium 9.2, AST 71, ALT 44, alkaline phos 113, albumin 3.9, lipase 192, INR 1. IMAGING STUDIES CT scan reviewed by myself, distended biliary tree, extra and intrahepatic prominence, gallbladder distended. CBD 8 mm. The gallbladder ultrasound pending. ASSESSMENT The patient is a 61-year-old female with multiple medical issues presents with acute onset of epigastric and right upper quadrant pain. PLAN After full clinical, radiologic, laboratory workup of the patient with the above-named issues. The patient has some evidence of abdominal pain in the right upper quadrant without evidence of gallstones and dilated gallbladder. At this point we will obtain HIDA scan for further evaluation to rule out possible acute cholecystitis. Again, gallstones are currently absent. If HIDA scan is positive we will discuss further intervention including laparoscopic cholecystectomy. Appreciate further medicine input and recommendations in terms of multiple comorbidities to medical treatment. Also, will request medical clearance for laparoscopic cholecystectomy. MD ATUL Solis/ROBB /8:45 PM /9:10 PM SABAS
[2017-03-04 00:15] VITALS: BP 128/76; PULSE 100; RESP 18; TEMP 97.8; O2SAT 99
[2017-03-04 04:03] VITALS: BP 125/75; PULSE 78; RESP 18; TEMP 97.1; O2SAT 98
[2017-03-04 05:44] LABS: AUTOMATED NEUTROPHIL # 1.1 TH/MM3 (1.8-7.7); BASOPHIL % 0.3 % (0.0-2.0); EOSINOPHIL % 1.3 % (0.0-4.0); HEMATOCRIT 34.3 % (35.0-46.0); HEMO FLAGS DIFF FINAL; LYMPH % 55.1 % (9.0-44.0); LYMPHOCYTE # 1.9 TH/MM3 (1.0-4.8); MEAN CELL VOLUME 82.1 FL (80.0-100.0); MEAN CORPUSCULAR HEMOGLOBIN 26.5 PG (27.0-34.0); MEAN CORPUSCULAR HGB CONC 32.2 % (32.0-36.0); MONO % 10.5 % (0.0-8.0); NEUT % 32.8 % (16.0-70.0); PLATELET COUNT 176 TH/MM3 (150-450); RED BLOOD COUNT 4.18 MIL/MM3 (4.00-5.30); RED CELL DISTRIBUTION WIDTH 15.4 % (11.6-17.2); WHITE BLOOD COUNT 3.4 TH/MM3 (4.0-11.0)
[2017-03-04 05:54] LABS: ALT (GPT) 50 U/L (10-53); ANION GAP 7 MEQ/L (5-15); AST (GOT) 36 U/L (15-37); BICARBONATE 23.8 MEQ/L (21.0-32.0); CHLORIDE 106 MEQ/L (98-107); GLOMERULAR FILTRATION RATE 72 ML/MIN (>89); POTASSIUM 3.9 MEQ/L (3.5-5.1); SODIUM (NA) 137 MEQ/L (136-145)
[2017-03-04 06:00] LABS: ALKALINE PHOSPHATASE 96 U/L (45-117); TOTAL BILIRUBIN ADULT 0.6 MG/DL (0.2-1.0)
[2017-03-04 06:02] LABS: BLOOD UREA NITROGEN 9 MG/DL (7-18)
[2017-03-04] MEDS ORDERED: ABAC1TAB3 PO (07:14)
[2017-03-04] MEDS: SODIUM CHLOR 0.9% 1000 ML INJ 1,000 ML IV SCH ×3 (07:23→20:54)
[2017-03-04 08:00] VITALS: BP 142/86; PULSE 85; RESP 16; TEMP 97.7; O2SAT 100
[2017-03-04] MEDS ORDERED: ALBUTEROL SULFATE 90 MCG/ACT HFA 8 GM INHALER INH PRN (08:00)
[2017-03-04] MEDS: SODIUM CHLORIDE 0.9% FLUSH 10 ML FLUSH IV FLUSH SCH ×2 (08:27→20:26)
[2017-03-04] MEDS: FERROUS SULFATE 325 MG (65 MG ELEMENTAL IRON) TAB PO SCH (08:34)
[2017-03-04] MEDS: DOCUSATE SODIUM 50 MG/SENNA 8.6 MG TAB PO SCH ×2 (08:35→20:25)
[2017-03-04] MEDS ORDERED: [UNRECOGNIZED DRUG - OTHER] EACH EYE SCH (09:00)
[2017-03-04] MEDS: FLUTICASONE PROPIONATE 50 MCG/ACT 16 GM NASAL SPRAY EACH NARE SCH ×2 (09:00→20:25)
[2017-03-04] MEDS ORDERED: DOLUTEGRAVIR SODIUM 50 MG TAB PO SCH ×4 (09:00→21:00)
[2017-03-04] MEDS ORDERED: ABACAVIR SULFATE 300 MG TAB PO SCH ×4 (09:00→21:00)
[2017-03-04] MEDS ORDERED: CYCLOSPORINE OPTH 0.05% EACH EYE SCH (09:00)
[2017-03-04] MEDS ORDERED: ALBUTEROL SULFATE 90 MCG/ACT HFA 18 GM INHALER INH PRN (09:47)
[2017-03-04] MEDS ORDERED: SINCALIDE 5 MCG/5 ML VIAL IV ONE (12:21)
--- NOTE | 2017-03-04 12:27 | RADRPT ---
EXAM DATE/TIME: 03/04/2017 10:01 [facility] COMPARISON: No previous studies available for comparison. INDICATIONS : Right upper quadrant pain for one week. DOSE: 4.0 mCi Tc99m Mebrofenin IV MEDICATION: 1.46 mcg Cholecystokinin IV; No symptomatic response. Cholecystokinin was administered by slow infusion over 8 minutes beginning at 65 minutes. MEDICAL HISTORY : HIV. Hypertension. Chronic obstructive pulmonary disease. SURGICAL HISTORY : section. ENCOUNTER: Initial ACUITY: 1 week PAIN SCALE: 7/10 LOCATION: Right upper quadrant TECHNIQUE: Following the intravenous administration of radiotracer, dynamic sequential image were performed with continuous acquisition. Time-activity curves were generated. FINDINGS: HEPATIIC KINETICS: There is prompt uptake of radiotracer in the liver. No focal defects are seen. There is normal rate of washout from the hepatic parenchyma. BILIARY CLEARANCE: Activity is first seen in the extrahepatic biliary system at 30 minutes. There is normal excretion i nto the small bowel. GALLBLADDER: Activity is first seen in the gallbladder at 40 minutes. POST CHOLECYSTOKININ: After Cholecystokinin administration, there is sluggish emptying of the gallbladder with a 30 % eject ion fraction. Common bile duct kinetics are normal and there is no evidence of biliary obstruction. BILIARY ENTERIC REFLUX: None observed. CLINICAL: The patient was asymptomatic after Cholecystokinin administration. CONCLUSION: Negative exam. Red Ayala MD on March 04, 2017 at 12:23 Board Certified Radiologist. This report was verified electronically.
[2017-03-04 12:30] VITALS: BP 151/90; PULSE 94; RESP 16; TEMP 98; O2SAT 100
[2017-03-04] MEDS: MORPHINE SULFATE 4 MG/ML INJ IV PRN ×2 (13:09→20:25)
--- NOTE | 2017-03-04 13:58 | HHI.FPPN ---
Subjective Remarks Ms Solis went for her HIDA scan today. She believed that she needed to not complain or the test would be stopped and she would remain NPO. She reported she started to get the same pain she has "when I eat the wrong foods and it cramps" with the CCK but she "didn't want to complain" as she didn't want to have to repeat the test or not be able to eat. She reports a history of months of abdominal "cramping" when she eats her favorite fatty foods. I explained that she should have reported the pain to radiology as that was part of the interpretation of the test. I advised her to eat a nonfat diet for now and she could see the surgeon to explain what happened. She is extremely hungry now as she has not eaten since Sunday. She may try a more regular diet tomorrow if she tolerates the nonfat one now. She stated that the HIDA did not hurt as much as when she came into the hospital but did cause "the same pain". She has no chest pain or other complaints today. Objective Vitals Vital Signs Date Time Temp Pulse Resp B/P Pulse Ox O2 Delivery O2 Flow Rate FiO2 03/04/17 08:00 97.7 85 16 142/86 100 03/04/17 07:37 Room Air 03/04/17 04:03 97.1 78 18 125/75 98 03/04/17 02:00 Room Air 03/04/17 00:15 97.8 100 18 128/76 99 03/03/17 21:39 18 03/03/17 20:15 96.4 96 18 163/92 99 03/03/17 16:00 97.1 95 18 144/90 100 03/03/17 14:59 98 21 I/O 03/03/17 03/03/17 03/03/17 03/04/17 03/04/17 03/04/17 07:00 15:00 23:00 07:00 15:00 23:00 Intake Total 200 ml 560 ml 700 ml Balance 200 ml 560 ml 700 ml Intake Oral 560 ml IV Total 200 ml 700 ml # Voids 3 2 5 # Bowel Movements 0 0 0 Result Diagram: 03/04/17 0455 03/04/17 0455 Other Results GENERAL: Thin, well appearing -[place] female, lying in bed. alert and talkative, less pain than yesterday. SKIN: Warm and dry. No obvious rashes. HEAD: Atraumatic. Normocephalic. EYES: Pupils equal and round. No scleral icterus. No injection or drainage. ENT: No nasal bleeding or discharge. Mucous membranes pink and moist. NECK: Trachea midline. No JVD. CARDIOVASCULAR: Regular rate and rhythm. No murmurs, gallops, or rubs. RESPIRATORY: No accessory muscle use. Clear to auscultation without rales or rhonchi, no gallop, no crackles. Breath sounds equal bilaterally. GASTROINTESTINAL: Abdomen soft, tender to palpation in all 4 quadrants yesterday , less today. Bowel sounds are normal. The abdomen is nondistended. Sotomayor sign negative. Hepatic and splenic margins not palpable. There is a midline vertical scar in the lower abdomen, well-healed.. MUSCULOSKELETAL: Extremities without clubbing, cyanosis, or edema. No obvious deformities. NEUROLOGICAL: Awake and alert. Cranial nerves II12 intact. Motor grossly within normal limits. Five out of 5 muscle strength in the arms and legs. Normal speech. PSYCHIATRIC: Appropriate mood and affect; insight and judgment normal. Urinary Catheter: No Vascular Central Line Catheter: No A/P Assessment and Plan 61-year-old female HIV, COPD, chronic abdominal pain presents with epigastric abdominal pain and CT showing biliary tree dilation. She was admitted for pain management, further workup, as well as surgical evaluation. Discharge Planning depending on how she does with eating and if her pain recurs will help determine when she can be D/[facility] Problem List: (1) Cholecystitis Status: Acute Plan: Patient presents with epigastric pain, nausea, vomiting after meal. Highly suggestive of biliary pathology. Clinical exam in the ED suggestive of positive Sotomayor sign prior to pain medication. CBD on CT noncontrast is 8 mm, dilated. Plan: Pain control morphine 4 mg IV every 3 hours as needed IV fluids at 125 mL per hour eating now after HIDA read as normal, however now pt states that the HIDA provoked her pain that she has been complaining of Gen. surgery consulted by the ED physician, appreciate their help. Unsure if she would need follow up as an outpt vs surgery soon Ultrasound abdomen no stones (2) HIV disease Status: Chronic Plan: Patient is on ARV at home and sees HIV specialist noted above. WBC is within normal limits, in the lower range. She states her last CD4 count was excellent. Plan: * continue ARV in hospital, do not stop these meds ever unless there is no choice (3) Dry eyes, bilateral Status: Acute Plan: Continue Restasis (4) COPD (chronic obstructive pulmonary disease) Status: Acute Plan: Patient has chronic COPD and is only on albuterol inhaler/nebulizer at home. She is satting well on room air and lung exam is unremarkable in the ED. She states she has chronic cough, not witnessed on exam today. Plan: Monitor vital signs Albuterol every 4 hours as needed nebulizer Add albuterol inhaler as indicated Consider referral for further controller medications as outpatient (5) Neuropathy Status: Chronic Plan: This is chronic. Patient is on no specific medication for this at this time. We'll monitor. likely due to HIV disease and treatment (6) Anxiety Status: Acute Plan: Noted. Patient is on amitriptyline but no other mood-modifying medications. We'll continue amitriptyline after patient is no longer NPO (7) Iron deficiency anemia Status: Acute Plan: H&H is within normal limits today. We'll hold iron. per pts report she had chronic blood loss in the past and is improved now. will not have any blood transfusions (8) Fluids/Electrolytes/Nutrition/Prophylaxis Status: Acute Plan: Fluids: NS @ 125ml/hr, can heplock once taking good po Electrolytes: monitor and replete as needed Nutrition: regular diet per surgery, advised nonfat especially for her first meal DVT Prophylaxis: Early ambulation. Holding anticoagulation due to possible sx GI Prophylaxis: not indicated Problem Qualifiers (1) COPD (chronic obstructive pulmonary disease): Qualified Code: J44.9 - Chronic obstructive pulmonary disease, unspecified COPD type (2) Iron deficiency anemia: Qualified Code: D50.0 - Iron deficiency anemia due to chronic blood loss Joan Vanessa MD Mar 04, 2017 13:58
--- NOTE | 2017-03-04 14:31 | HHI.PR ---
Subjective Subjective Notes mild abdominal pain, wanting to eat Objective Vitals/I&O Vital Signs Date Time Temp Pulse Resp B/P Pulse Ox O2 Delivery O2 Flow Rate FiO2 03/04/17 08:00 97.7 85 16 142/86 100 03/04/17 07:37 Room Air 03/03/17 14:59 21 Labs Laboratory Tests Test 03/04/17 04:55 White Blood Count 3.4 Red Blood Count 4.18 Hemoglobin 11.0 Hematocrit 34.3 Mean Corpuscular Volume 82.1 Mean Corpuscular Hemoglobin 26.5 Mean Corpuscular Hemoglobin 32.2 Concent Red Cell Distribution Width 15.4 Platelet Count 176 Mean Platelet Volume 9.3 Neutrophils (%) (Auto) 32.8 Lymphocytes (%) (Auto) 55.1 Monocytes (%) (Auto) 10.5 Eosinophils (%) (Auto) 1.3 Basophils (%) (Auto) 0.3 Neutrophils # (Auto) 1.1 Lymphocytes # (Auto) 1.9 Monocytes # (Auto) 0.4 Eosinophils # (Auto) 0.0 Basophils # (Auto) 0.0 CBC Comment DIFF FINAL Differential Comment Sodium Level 137 Potassium Level 3.9 Chloride Level 106 Carbon Dioxide Level 23.8 Anion Gap 7 Blood Urea Nitrogen 9 Creatinine 0.95 Estimat Glomerular Filtration 72 Rate Random Glucose 65 Calcium Level 8.3 Total Bilirubin 0.6 Aspartate Amino Transf 36 (AST/SGOT) Alanine Aminotransferase 50 (ALT/SGPT) Alkaline Phosphatase 96 Total Protein 7.2 Albumin 3.2 Cardiovascular: Regular Lungs: Clear Abdomen: Other (soft mild ttp) A/P Assessment and Plan abdominal pain HIDA negative for pain but Gallbladder EF 30% which could be consistent with biliary dyskinesia- Pt seen after exam states continued right sided pain and epigastric pain PLAN Reg diet today, NPO after mn bowel regimen for constipation will consider lap sumit and EGD early this week appreciate medicine clearance for surgery Benjamin Souza MD Mar 04, 2017 14:31
[2017-03-04 16:00] VITALS: BP 136/90; PULSE 81; RESP 16; TEMP 98; O2SAT 97
[2017-03-04] MEDS: AMITRIPTYLINE HCL 50 MG TAB PO SCH (20:24)
[2017-03-04] MEDS: DOLUTEGRAVIR SODIUM 50 MG TAB PO SCH (20:25)
[2017-03-04] MEDS: ABACAVIR SULFATE 300 MG TAB PO SCH (20:25)
[2017-03-04] MEDS: ONDANSETRON HCL 4 MG/2 ML VIAL IVP PRN (20:35)
[2017-03-04 21:00] VITALS: BP 129/80; PULSE 91; RESP 16; TEMP 97.1; O2SAT 96
[2017-03-04] MEDS ORDERED: NON-FORMULARY DRUG (Abacavir-Dolutegravir-Lamivudine (Triumeq) 1 TAB) PO SCH (21:00)
[2017-03-05] VITALS (8 sets, daily range): BP systolic 112–157; BP diastolic 67–95; PULSE 80–93; RESP 16–20; TEMP 96.9–98; O2SAT 96–98
[2017-03-05] MEDS: MORPHINE SULFATE 4 MG/ML INJ IV PRN ×2 (00:56→09:15)
[2017-03-05] MEDS: ONDANSETRON HCL 4 MG/2 ML VIAL IVP PRN ×2 (03:52→20:44)
[2017-03-05] MEDS: SODIUM CHLOR 0.9% 1000 ML INJ 1,000 ML IV SCH ×2 (07:23→22:24)
[2017-03-05] MEDS: SODIUM CHLORIDE 0.9% FLUSH 10 ML FLUSH IV FLUSH SCH ×2 (08:52→20:43)
[2017-03-05] MEDS: DOCUSATE SODIUM 50 MG/SENNA 8.6 MG TAB PO SCH ×2 (08:52→20:43)
[2017-03-05] MEDS: FLUTICASONE PROPIONATE 50 MCG/ACT 16 GM NASAL SPRAY EACH NARE SCH ×2 (08:52→20:44)
[2017-03-05] MEDS ORDERED: ONDANSETRON HCL 4 MG/2 ML VIAL IV PUSH ONE (09:53)
[2017-03-05] MEDS ORDERED: LACTATED RINGER'S 1000 ML INJ 1,000 ML IV ONE (09:53)
[2017-03-05] MEDS ORDERED: PROPOFOL 200 MG/20 ML AMP IV ONE (09:53)
--- NOTE | 2017-03-05 09:55 | HHI.FPPN ---
Subjective Remarks Patient is doing better this morning. She tolerated a normal diet yesterday without difficulty. Continues to complain of similar abdominal discomfort as before. She understands she could be going to surgery today or tomorrow pending operating room availability. She denies fever, chills, nausea, vomiting. No bowel movements. (Dmitri Montaño MD R2) Objective Vitals Vital Signs Date Time Temp Pulse Resp B/P Pulse Ox O2 Delivery O2 Flow Rate FiO2 03/05/17 08:00 97.6 80 18 130/80 98 03/05/17 04:55 97.2 84 16 145/75 98 03/05/17 00:55 97.8 92 16 112/67 97 03/04/17 21:00 97.1 91 16 129/80 96 03/04/17 16:00 98.0 81 16 136/90 97 03/04/17 13:20 16 03/04/17 12:30 98.0 94 16 151/90 100 I/O 03/04/17 03/04/17 03/04/17 03/05/17 03/05/17 03/05/17 07:00 15:00 23:00 07:00 15:00 23:00 Intake Total 700 ml 240 ml 480 ml 71 ml Balance 700 ml 240 ml 480 ml 71 ml Intake Oral 240 ml 480 ml 0 ml IV Total 700 ml 71 ml # Voids 5 4 1 2 # Bowel Movements 0 0 0 0 (Dmitri Montaño MD R2) Result Diagram: 03/04/17 0455 03/04/17 045 Objective Remarks GENERAL: Thin, well appearing -[place] Citizen female, lying in bed comfortably. SKIN: Warm and dry. No obvious rashes. HEAD: Atraumatic. Normocephalic. EYES: Pupils equal and round. No scleral icterus. No injection or drainage. CARDIOVASCULAR: Regular rate and rhythm. No murmurs, gallops, or rubs. RESPIRATORY: No accessory muscle use. Clear to auscultation without rales or rhonchi, no gallop, no crackles. Breath sounds equal bilaterally. GASTROINTESTINAL: Abdomen soft, very mildly tender in all 4 quadrants, bowel sounds are normal. The abdomen is nondistended. No guarding. MUSCULOSKELETAL: Extremities without clubbing, cyanosis, or edema. No obvious deformities. NEUROLOGICAL: Awake and alert and oriented 3. Motor grossly within normal limits. Five out of 5 muscle strength in the arms and legs. Normal speech. PSYCHIATRIC: Appropriate mood and affect; insight and judgment normal. (Dmitri Montaño MD R2) A/P Assessment and Plan 61-year-old female HIV, COPD, chronic abdominal pain presents with findings concerning for gallbladder disease. Gen. surgery consult and plan as discussed below. Discharge Planning Pending clinical improvement, including surgery (Dmitri Montaño MD R2) Attending Attestation Patient seen and examined. Case reviewed and discussed with the resident team. Agree with plan of care as discussed with me and documented in the resident note. Anticipating surgery possibly at 1400 today. Concerns she has are heightened by a relative who was hospitalized with abdominal pain, had a bowel perf, was in a coma and survived but suffered loss of her feet and hands due to gangrene. (Amairani Montaño MD) Problem List: (1) Cholecystitis Status: Acute Plan: Gen. surgery consult HIDA negative for pain by gallbladder EF 30% which could be consistent with biliary dyskinesia. Per surgery, currently nothing by mouth for possible laparoscopic cholecystectomy and EGD pending operating room availability. Medications: Pain control morphine 4 mg IV every 3 hours as needed IV fluids at 125 mL per hour Bowel regimen for constipation per protocol (2) HIV disease Status: Chronic Plan: Patient is on ARV at home and sees HIV specialist noted above. She states her last CD4 count was excellent. Continue ARV in hospital (3) Dry eyes, bilateral Status: Chronic Plan: Continue Restasis (4) COPD (chronic obstructive pulmonary disease) Status: Chronic Plan: Albuterol every 4 hours as needed nebulizer Add albuterol inhaler as indicated Consider referral for further controller medications as outpatient (5) Neuropathy Status: Chronic Plan: This is chronic. Patient is on no specific medication for this at this time. We'll monitor. likely due to HIV disease and treatment (6) Anxiety Status: Acute Plan: Continue amitriptyline (7) Iron deficiency anemia Status: Acute Plan: H&H is within normal limits today. We'll hold iron. per pts report she had chronic blood loss in the past and is improved now. will not have any blood transfusions (8) Fluids/Electrolytes/Nutrition/Prophylaxis Status: Acute Plan: Fluids: NS @ 125ml/hr, can heplock once taking good po Electrolytes: monitor and replete as needed Nutrition: Per general surgery, currently nothing by mouth in anticipation of procedure DVT Prophylaxis: Early ambulation. Holding anticoagulation due to possible sx GI Prophylaxis: not indicated (Dmitri Montaño MD R2) Problem Qualifiers (1) COPD (chronic obstructive pulmonary disease): Qualified Code: J44.9 - Chronic obstructive pulmonary disease, unspecified COPD type (2) Iron deficiency anemia: Qualified Code: D50.0 - Iron deficiency anemia due to chronic blood loss Dmitri Montaño MD R2 Mar 05, 2017 09:55 Amairani Montaño MD Mar 05, 2017 11:45
[2017-03-05] MEDS ORDERED: fentaNYL CITRATE 250 MCG/5 ML AMP ONE (14:17)
[2017-03-05] MEDS ORDERED: ACETAMINOPHEN 1000 MG/100 ML VIAL IV ONE (14:17)
[2017-03-05] MEDS ORDERED: MIDAZOLAM HCL 2 MG/2 ML VIAL ONE (14:17)
[2017-03-05] MEDS ORDERED: FAMOTIDINE 20 MG/2 ML VIAL ONE (14:18)
--- NOTE | 2017-03-05 14:20 | EKG ---
Date Performed: 03/05/2017 Time Performed: 03:38:50 PTAGE: 61 years EKG: Sinus rhythm ST elevation V2 is new since the prior tracing and cannot rule out injury. Clinical correlation is s trongly recommended. Abnormal ECG PREVIOUS TRACING : 12/11/2014 09.51 DOCTOR: Ishmael Zee Interpretating Date/Time 03/05/2017 14:18:22
[2017-03-05] MEDS ORDERED: ceFAZolin 2 GM PREMIX 50 ML ONE (14:58)
--- NOTE | 2017-03-05 15:11 | HHI.PR ---
Immediate Post Op Note Procedure Date: Mar 05, 2017 Pre Op Diagnosis: biliary dyskinesia, reflux Post Op Diagnosis: same Surgeon: Benjamin Souza MD Medical Records Coordinator(s): see or sheet Procedure: lap sumit, intraoperative EGD Findings: good hemostasis, distended gallbladder, mild gastritis Complications: none Specimen(s) removed: gallbladder Estimated blood loss: 5cc Anesthesia: General Drains: None Patient to: PACU Patient Condition: Good Benjamin Souza MD Mar 05, 2017 15:11
[2017-03-05] MEDS ORDERED: BUPIVACAINE/EPINEPHRINE 0.5% 50 ML VIAL INFIL ONE (15:42)
[2017-03-05] MEDS ORDERED: LIDOCAINE 1%/EPINEPHrine 1:200,000 PF SOLN 10 ML VIAL INFIL ONE (15:43)
[2017-03-05] MEDS ORDERED: SUGAMMADEX SODIUM 200 MG/2 ML VIAL IV PUSH ONE ×2 (15:56)
[2017-03-05] MEDS ORDERED: *morphine SULFATE 8 MG/ML PERIprocedure ONLY ONE (17:06)
[2017-03-05] MEDS ORDERED: MORPHINE SULFATE 8 MG/ML INJ IV PUSH PRN (17:11)
[2017-03-05] MEDS ORDERED: DO NOT ADM ANY ANTICOAGULANT DRUGS PRN (17:30)
[2017-03-05] MEDS: oxyCODONE/ACETAMINOPHEN 5 MG/325 MG TAB PO PRN (18:05)
[2017-03-05] MEDS: DOLUTEGRAVIR SODIUM 50 MG TAB PO SCH (20:43)
[2017-03-05] MEDS: ABACAVIR SULFATE 300 MG TAB PO SCH (20:43)
[2017-03-05] MEDS: AMITRIPTYLINE HCL 50 MG TAB PO SCH (20:43)
[2017-03-06 04:10] VITALS: BP 119/73; PULSE 83; RESP 18; TEMP 97.8; O2SAT 95
[2017-03-06] MEDS: ONDANSETRON HCL 4 MG/2 ML VIAL IVP PRN (06:26)
[2017-03-06] MEDS: oxyCODONE/ACETAMINOPHEN 5 MG/325 MG TAB PO PRN ×4 (06:26→23:18)
[2017-03-06 06:42] LABS: AUTOMATED NEUTROPHIL # 3.2 TH/MM3 (1.8-7.7); BASOPHIL % 0.1 % (0.0-2.0); HEMATOCRIT 34.3 % (35.0-46.0); HEMO FLAGS DIFF FINAL; LYMPH % 23.5 % (9.0-44.0); LYMPHOCYTE # 1.1 TH/MM3 (1.0-4.8); MEAN CELL VOLUME 82.7 FL (80.0-100.0); MEAN CORPUSCULAR HEMOGLOBIN 26.8 PG (27.0-34.0); MEAN CORPUSCULAR HGB CONC 32.4 % (32.0-36.0); MONO % 5.4 % (0.0-8.0); PLATELET COUNT 202 TH/MM3 (150-450); RED BLOOD COUNT 4.14 MIL/MM3 (4.00-5.30); RED CELL DISTRIBUTION WIDTH 15.7 % (11.6-17.2); WHITE BLOOD COUNT 4.5 TH/MM3 (4.0-11.0)
[2017-03-06] MEDS: SODIUM CHLOR 0.9% 1000 ML INJ 1,000 ML IV SCH ×2 (07:23→22:41)
[2017-03-06 07:43] LABS: ALKALINE PHOSPHATASE 103 U/L (45-117); ALT (GPT) 64 U/L (10-53); ANION GAP 9 MEQ/L (5-15); AST (GOT) 52 U/L (15-37); BICARBONATE 26.1 MEQ/L (21.0-32.0); BLOOD UREA NITROGEN 13 MG/DL (7-18); CHLORIDE 99 MEQ/L (98-107); GLOMERULAR FILTRATION RATE 68 ML/MIN (>89); SODIUM (NA) 134 MEQ/L (136-145); TOTAL BILIRUBIN ADULT 0.3 MG/DL (0.2-1.0)
[2017-03-06 08:00] VITALS: BP 146/88; PULSE 86; RESP 18; TEMP 96.4; O2SAT 94
[2017-03-06] MEDS: DOCUSATE SODIUM 50 MG/SENNA 8.6 MG TAB PO SCH ×2 (08:10→22:36)
[2017-03-06] MEDS: FERROUS SULFATE 325 MG (65 MG ELEMENTAL IRON) TAB PO SCH (08:10)
[2017-03-06] MEDS: LACTULOSE SYRUP 20 GM/30 ML CUP PO PRN (08:15)
[2017-03-06] MEDS: FLUTICASONE PROPIONATE 50 MCG/ACT 16 GM NASAL SPRAY EACH NARE SCH ×2 (08:16→22:38)
[2017-03-06] MEDS: SODIUM CHLORIDE 0.9% FLUSH 10 ML FLUSH IV FLUSH SCH ×2 (08:16→22:36)
[2017-03-06] MEDS ORDERED: PANTOPRAZOLE SODIUM 40 MG VIAL IV PUSH SCH (09:00)
--- NOTE | 2017-03-06 09:07 | HHI.FPPN ---
Subjective Remarks Patient is doing well this morning. She is ambulating and voiding without difficulty. She denies passing gas or stool. She is having some abdominal pain at the umbilical incision site. Denies fever, chills, nausea, vomiting, shortness of breath. (Dmitri Montaño MD R2) Objective Vitals Vital Signs Date Time Temp Pulse Resp B/P Pulse Ox O2 Delivery O2 Flow Rate FiO2 03/06/17 04:10 97.8 83 18 119/73 95 03/05/17 23:00 97.8 84 18 144/85 98 03/05/17 20:10 96 21 03/05/17 19:23 97.4 88 18 152/71 97 03/05/17 17:58 96.9 93 20 157/95 97 03/05/17 17:15 98.2 93 16 150/80 100 Nasal Cannula 2 03/05/17 17:00 91 16 155/85 100 Nasal Cannula 2 03/05/17 16:45 92 16 127/77 100 Nasal Cannula 03/05/17 16:30 93 18 154/86 100 Nasal Cannula 2 03/05/17 16:20 97.9 93 16 144/85 100 Nasal Cannula 2 03/05/17 12:00 98.0 91 18 135/72 96 I/O 03/05/17 03/05/17 03/05/17 03/06/17 03/06/17 03/06/17 06:59 14:59 22:59 06:59 14:59 22:59 Intake Total 71 ml 1587 ml 497 ml Output Total 5 ml Balance 71 ml 1582 ml 497 ml Intake Oral 0 ml 360 ml 240 ml IV Total 71 ml 227 ml 257 ml Other 1000 ml Output Estimated Blood Loss 5 ml # Voids 2 2 1 2 # Bowel Movements 0 0 0 (Dmitri Montaño MD R2) Result Diagram: 03/06/17 0431 03/06/17 0431 Objective Remarks GENERAL: Thin, well appearing -[place] female, lying in bed comfortably. SKIN: Warm and dry. Abdominal surgical incisions well healing. clean dry and intact. HEAD: Atraumatic. Normocephalic. EYES: Pupils equal and round. No scleral icterus. No injection or drainage. CARDIOVASCULAR: Regular rate and rhythm. No murmurs, gallops, or rubs. RESPIRATORY: No accessory muscle use. Clear to auscultation without rales or rhonchi, no gallop, no crackles. Breath sounds equal bilaterally. GASTROINTESTINAL: Abdomen soft, mildly tender at umbilicus, bowel sounds are normal. The abdomen is nondistended. No guarding. MUSCULOSKELETAL: Extremities without clubbing, cyanosis, or edema. No obvious deformities. NEUROLOGICAL: Awake and alert and oriented 3. Motor grossly within normal limits. Five out of 5 muscle strength in the arms and legs. Normal speech. PSYCHIATRIC: Appropriate mood and affect; insight and judgment normal. (Dmitri Montaño MD R2) A/P Assessment and Plan 61-year-old female HIV, COPD, chronic abdominal pain presents with findings concerning for gallbladder disease. Gen. surgery consult and plan as discussed below. Discharge Planning Pending tolerating regular diet, surgical clearance. (Dmitri Montaño MD R2) Attending Attestation Patient seen and examined. Case reviewed and discussed with the resident team. Agree with plan of care as discussed with me and documented in the resident note. (Amairani Montaño MD) Problem List: (1) Cholecystitis Status: Acute Plan: Gen. surgery consult Postoperative day #1 laparoscopic cholecystectomy/EGD Advance diet per surgery Medications: Pain control morphine 4 mg IV every 3 hours as needed Bowel regimen for constipation per protocol Imaging: HIDA negative for pain by gallbladder EF 30% which could be consistent with biliary dyskinesia. (2) HIV disease Status: Chronic Plan: Patient is on ARV at home and sees HIV specialist noted above. She states her last CD4 count was excellent. Continue ARV in hospital (3) Dry eyes, bilateral Status: Chronic Plan: Continue Restasis (4) COPD (chronic obstructive pulmonary disease) Status: Chronic Plan: Albuterol every 4 hours as needed nebulizer Add albuterol inhaler as indicated Consider referral for further controller medications as outpatient (5) Neuropathy Status: Chronic Plan: This is chronic. Patient is on no specific medication for this at this time. We'll monitor. likely due to HIV disease and treatment (6) Anxiety Status: Acute Plan: Continue amitriptyline (7) Iron deficiency anemia Status: Acute Plan: H&H is within normal limits today. We'll hold iron. per pts report she had chronic blood loss in the past and is improved now. will not have any blood transfusions (8) Fluids/Electrolytes/Nutrition/Prophylaxis Status: Acute Plan: Fluids: Tolerating by mouth Electrolytes: monitor and replete as needed Nutrition: Per general surgery, currently regular DVT Prophylaxis: Early ambulation. Holding anticoagulation due to possible sx GI Prophylaxis: not indicated (Dmitri Montaño MD R2) Problem Qualifiers (1) COPD (chronic obstructive pulmonary disease): Qualified Code: J44.9 - Chronic obstructive pulmonary disease, unspecified COPD type (2) Iron deficiency anemia: Qualified Code: D50.0 - Iron deficiency anemia due to chronic blood loss Dmitri Montaño MD R2 Mar 06, 2017 09:07 Amairani Montaño MD Mar 06, 2017 17:49
--- NOTE | 2017-03-06 10:10 | MP ---
cc: ILIANA SOUZA MD DATE OF SURGERY 03/05/2017 PREOPERATIVE DIAGNOSIS Biliary dyskinesia, reflux. POSTOPERATIVE DIAGNOSIS Biliary dyskinesia, reflux, gastritis, esophagitis. PROCEDURE PERFORMED 1. Laparoscopic cholecystectomy 2. Esophagogastroduodenoscopy SURGEON Dr. Iliana Souza [employer]OLS ENGINEER See OR sheet ANESTHESIA GETA, see anesthesia sheet ESTIMATED BLOOD LOSS 5 cc DRAINS None COMPLICATIONS None WOUND CLASSIFICATION Clean, contaminated. SPECIMEN Gallbladder sent for pathology. FINDINGS Distended gallbladder, esophagitis and gastritis on EGD. INDICATION The patient is a 61-year-old female who presents with acute onset of abdominal pain. The patient states the pain has been going on for a little while now and developed in both the epigastric area and right upper quadrant. The patient did have underlying chronic pain and constipation to the left lower quadrant. She stated this pain was new and different, but has had several episodes in the past. Further workup including HIDA scan showed an ejection fraction of 30%. Therefore, concern for biliary dyskinesia. The patient also with reflux, therefore decision for EGD as well. DETAILS OF THE PROCEDURE The patient was taken to the operating suite, placed in the supine position. She was prepped and draped in the usual sterile fashion after induction of general endotracheal anesthesia. A brief time-out done stating correct patient, procedure, and surgical site. We were all in agreement with this. Attention first directed to the umbilicus. A stab kyle incision made with an 11-blade. Veress needle placed, abdomen insufflated to 50 mm pneumoperitoneum. Veress needle was changed to a 5 mm trocar and Visiport scope. On cursory inspection, no evidence of injury. Three other trocars placed, one 12 mm epigastric followed by two 5 mm right subcostal, anterior axillary and midclavicular lines. The patient placed in reverse Trendelenburg and airplaned to the left. The gallbladder was identified and there was noted to be a couple of adhesions to the gallbladder. These were taken down with [place] and EndoShears as well and a electro Bovie cautery. The infundibulum was identified and the cystic duct and cystic artery were dissected out using a [place] and a hook electro Bovie cautery. Two clips were placed proximal on both the cystic duct and the cystic artery and one distal and this was used to transect the cystic duct and cystic artery. Hook electro Bovie cautery was used to remove the gallbladder from the gallbladder fossa. The gallbladder was placed in an EndoCatch bag and removed from the abdomen through the epigastric port. Hemostasis was obtained. No real evidence of bleeding and no biliary leaking. At this point, the abdomen was desufflated. The epigastric port was closed with a 0 Vicryl followed by 4-0 Monocryl subcuticular sutures to all port sites, sterile dressing and Steri-Strips placed. All lap and instrument counts were correct. No complications, the patient tolerated the procedure well. We then transitioned to the endoscopic portion of the procedure. I broke scrub and went to patient where the gastroscope was obtained, a mouth bite block was placed. The gastroscope was then introduced into the mouth and oropharynx and esophagus. On inspection, there was noted to be a mild esophagitis at the distal esophagus. Further inspection and insufflation noted a little bit of bile reflux in the distal stomach and also some areas of gastritis and minimal bleeding irritation. Retroflexed views done without evidence of hiatal hernia or further pathology. The pylorus was intubated and no evidence of abnormality. The abdomen was then desufflated and the scope was retracted. The scope was completely removed. The patient tolerated procedure well. The patient was extubated, taken to the PACU. Again no complication. MD ATUL Solis/SONALI /5:54 PM /10:02 AM
[2017-03-06 12:00] VITALS: BP 127/76; PULSE 102; RESP 18; TEMP 98.8; O2SAT 95
[2017-03-06] MEDS: SUCRALFATE 1 GM/10 ML CUP PO SCH ×3 (12:30→22:36)
[2017-03-06 16:00] VITALS: BP 128/81; PULSE 95; RESP 18; TEMP 97.9; O2SAT 95
[2017-03-06 19:46] VITALS: BP 128/65; PULSE 76; RESP 18; TEMP 97.8; O2SAT 97
[2017-03-06 20:09] VITALS: O2SAT 95
--- NOTE | 2017-03-06 20:33 | HHI.PR ---
Subjective Subjective Notes no acute issue, pain controlled Objective Vitals/I&O Vital Signs Date Time Temp Pulse Resp B/P Pulse Ox O2 Delivery O2 Flow Rate FiO2 03/06/17 20:09 95 21 03/06/17 16:00 97.9 95 18 128/81 03/05/17 17:15 Nasal Cannula 2 Labs Laboratory Tests Test 03/06/17 04:31 White Blood Count 4.5 Red Blood Count 4.14 Hemoglobin 11.1 Hematocrit 34.3 Mean Corpuscular Volume 82.7 Mean Corpuscular Hemoglobin 26.8 Mean Corpuscular Hemoglobin 32.4 Concent Red Cell Distribution Width 15.7 Platelet Count 202 Mean Platelet Volume 9.1 Neutrophils (%) (Auto) 71.0 Lymphocytes (%) (Auto) 23.5 Monocytes (%) (Auto) 5.4 Eosinophils (%) (Auto) 0.0 Basophils (%) (Auto) 0.1 Neutrophils # (Auto) 3.2 Lymphocytes # (Auto) 1.1 Monocytes # (Auto) 0.2 Eosinophils # (Auto) 0.0 Basophils # (Auto) 0.0 CBC Comment DIFF FINAL Differential Comment Sodium Level 134 Potassium Level 5.0 Chloride Level 99 Carbon Dioxide Level 26.1 Anion Gap 9 Blood Urea Nitrogen 13 Creatinine 1.00 Estimat Glomerular Filtration 68 Rate Random Glucose 84 Calcium Level 9.0 Total Bilirubin 0.3 Aspartate Amino Transf 52 (AST/SGOT) Alanine Aminotransferase 64 (ALT/SGPT) Alkaline Phosphatase 103 Total Protein 7.5 Albumin 3.3 Cardiovascular: Regular Lungs: Clear Abdomen: Other (soft incisional tenderness) A/P Assessment and Plan abdominal pain HIDA negative for pain but Gallbladder EF 30% which could be consistent with biliary dyskinesia- Pt seen after exam states continued right sided pain and epigastric pain PLAN advance diet as tolerated OOB IS Pain control PPI/carafate for gastritis d/c planning when tolerating diet and pain controlled Benjamin Souza MD Mar 06, 2017 20:33
[2017-03-06] MEDS: DOLUTEGRAVIR SODIUM 50 MG TAB PO SCH (22:35)
[2017-03-06] MEDS: ABACAVIR SULFATE 300 MG TAB PO SCH (22:36)
[2017-03-06] MEDS: AMITRIPTYLINE HCL 50 MG TAB PO SCH (22:36)
[2017-03-06] MEDS: PANTOPRAZOLE SOD 40 MG DELAYED RELEASE TAB PO SCH (22:36)
[2017-03-07 00:17] VITALS: BP 110/57; PULSE 70; RESP 18; TEMP 97.7; O2SAT 98
[2017-03-07] MEDS: SUCRALFATE 1 GM/10 ML CUP PO SCH ×2 (05:29→10:25)
[2017-03-07] MEDS: oxyCODONE/ACETAMINOPHEN 5 MG/325 MG TAB PO PRN ×2 (05:30→12:31)
[2017-03-07] MEDS: LACTULOSE SYRUP 20 GM/30 ML CUP PO PRN (05:33)
[2017-03-07 08:00] VITALS: BP 111/71; PULSE 86; RESP 17; TEMP 97.7; O2SAT 94
[2017-03-07 08:34] LABS: AUTOMATED NEUTROPHIL # 1.4 TH/MM3 (1.8-7.7); BASOPHIL % 0.3 % (0.0-2.0); EOSINOPHIL % 0.5 % (0.0-4.0); HEMATOCRIT 35.1 % (35.0-46.0); HEMO FLAGS DIFF FINAL; LYMPH % 57.8 % (9.0-44.0); LYMPHOCYTE # 2.3 TH/MM3 (1.0-4.8); MEAN CORPUSCULAR HEMOGLOBIN 26.2 PG (27.0-34.0); MEAN CORPUSCULAR HGB CONC 31.6 % (32.0-36.0); NEUT % 34.4 % (16.0-70.0); PLATELET COUNT 197 TH/MM3 (150-450); RED BLOOD COUNT 4.22 MIL/MM3 (4.00-5.30); RED CELL DISTRIBUTION WIDTH 16.1 % (11.6-17.2)
[2017-03-07] MEDS: PANTOPRAZOLE SOD 40 MG DELAYED RELEASE TAB PO SCH (08:53)
[2017-03-07] MEDS: DOCUSATE SODIUM 50 MG/SENNA 8.6 MG TAB PO SCH (08:53)
[2017-03-07 08:55] LABS: BICARBONATE 27.5 MEQ/L (21.0-32.0)
[2017-03-07] MEDS: SODIUM CHLORIDE 0.9% FLUSH 10 ML FLUSH IV FLUSH SCH (09:00)
[2017-03-07] MEDS: FLUTICASONE PROPIONATE 50 MCG/ACT 16 GM NASAL SPRAY EACH NARE SCH (09:00)
[2017-03-07] MEDS ORDERED: MAGNESIUM HYDROXIDE SUSP 30 ML CUP PO ONE (09:15)
[2017-03-07] MEDS ORDERED: POLYETHYLENE GLYCOL 17 GM PKG PO ONE (09:15)
[2017-03-07 09:54] VITALS: O2SAT 97
--- NOTE | 2017-03-07 10:45 | HHI.PR ---
Subjective Subjective Notes Resting in bed Has been OOB Pain controlled Tolerating regular diet Wants to have BM prior to DC Objective Vitals/I&O Vital Signs Date Time Temp Pulse Resp B/P Pulse Ox O2 Delivery O2 Flow Rate FiO2 03/07/17 09:54 97 21 03/07/17 08:00 97.7 86 17 111/71 03/05/17 17:15 Nasal Cannula 2 Labs Laboratory Tests Test 03/07/17 07:09 White Blood Count 4.0 Red Blood Count 4.22 Hemoglobin 11.1 Hematocrit 35.1 Mean Corpuscular Volume 83.0 Mean Corpuscular Hemoglobin 26.2 Mean Corpuscular Hemoglobin 31.6 Concent Red Cell Distribution Width 16.1 Platelet Count 197 Mean Platelet Volume 9.3 Neutrophils (%) (Auto) 34.4 Lymphocytes (%) (Auto) 57.8 Monocytes (%) (Auto) 7.0 Eosinophils (%) (Auto) 0.5 Basophils (%) (Auto) 0.3 Neutrophils # (Auto) 1.4 Lymphocytes # (Auto) 2.3 Monocytes # (Auto) 0.3 Eosinophils # (Auto) 0.0 Basophils # (Auto) 0.0 CBC Comment DIFF FINAL Differential Comment Sodium Level 135 Potassium Level 4.0 Chloride Level 101 Carbon Dioxide Level 27.5 Anion Gap 7 Blood Urea Nitrogen 15 Creatinine 1.22 Estimat Glomerular Filtration 54 Rate Random Glucose 109 Calcium Level 9.2 Cardiovascular: Regular Lungs: Clear Abdomen: Other (soft; non distended; lap sites c/d/i x4), Post-op tenderness Extremities: No edema A/P Assessment and Plan 61 year old female POD2 lap sumit and EGD -Tolerating regular diet -Pain controlled -Add BM meds -Continue Protonix and Carafate -GS clear for DC -Follow up with Dr. Souza in 10-14 days Attending Statement pain and vomiting improved patient seen at bedside d/c planning Attestation The exam, history, and the medical decision-making described in the above note were completed with the assistance of the mid-level provider. I reviewed and agree with the findings presented. I attest that I had a [id number] encounter with the patient on the same day, and personally performed and documented my assessment and findings in the medical record. Attestation The exam, history, and the medical decision-making described in the above note were completed with the assistance of the mid-level provider. I reviewed and agree with the findings presented. I attest that I had a [id number] encounter with the patient on the same day, and personally performed and documented my assessment and findings in the medical record. Najma Spann Mar 07, 2017 10:44 Benjamin Souza MD Mar 12, 2017 20:31
[2017-03-07] MEDS ORDERED: SENN1TAB PO (11:42)
[2017-03-07] MEDS ORDERED: OXYC1TAB63 PO (11:42)
--- NOTE | 2017-03-07 11:45 | HHI.FF ---
Face to Face Verification Diagnosis: (1) Cholecystitis Physical Therapy Order: Evaluate and Treat, Improve ambulation, Strength and gait training Home Health Nursing Order: Medical education Signs/symptoms of disease process Medication education-adverse effect Wound care and dressing changes I have seen patient Sarai Solis on 03/07/17. My clinical findings support the need for the requested home health care services because: Ltd mobility - disease progression Patient has SOB Deconditioned w/ increased weakness Med compliance is questionable Limited ability to care for self I certify that my clinical findings support that this patient is homebound because: Post-op weakness Unsteady gait/balance Dmitri Montaño MD R2 Mar 07, 2017 11:45
--- NOTE | 2017-03-07 11:48 | HHI.FPPN ---
Subjective Remarks The patient is doing well this morning. She is ambulating and voiding without difficulty. She is passing gas. Still no bowel movement. Her pain is improving and under control. Denies nausea, vomiting, headache, vision changes , fever. (Dmitri Montaño MD R2) Objective Vitals Vital Signs Date Time Temp Pulse Resp B/P Pulse Ox O2 Delivery O2 Flow Rate FiO2 03/07/17 09:54 97 21 03/07/17 08:00 97.7 86 17 111/71 94 03/07/17 00:17 97.7 70 18 110/57 98 03/06/17 20:09 95 21 03/06/17 19:46 97.8 76 18 128/65 97 03/06/17 16:00 97.9 95 18 128/81 95 03/06/17 12:00 98.8 102 18 127/76 95 I/O 03/06/17 03/06/17 03/06/17 03/07/17 03/07/17 03/07/17 07:00 15:00 23:00 07:00 15:00 23:00 Intake Total 497 ml 1080 ml 360 ml Balance 497 ml 1080 ml 360 ml Intake Oral 240 ml 1080 ml 360 ml IV Total 257 ml # Voids 2 6 2 # Bowel Movements 0 0 0 (Dmitri Montaño MD R2) Result Diagram: 03/07/1770803/07/17 0709 Objective Remarks GENERAL: Thin, well appearing -[place]ov[place] female, lying in bed comfortably. SKIN: Warm and dry. Abdominal surgical incisions well healing. clean dry and intact. HEAD: Atraumatic. Normocephalic. EYES: Pupils equal and round. No scleral icterus. No injection or drainage. CARDIOVASCULAR: Regular rate and rhythm. No murmurs, gallops, or rubs. RESPIRATORY: No accessory muscle use. Clear to auscultation without rales or rhonchi, no gallop, no crackles. Breath sounds equal bilaterally. GASTROINTESTINAL: Abdomen soft, mildly tender at umbilicus, bowel sounds are normal. The abdomen is nondistended. No guarding. MUSCULOSKELETAL: Extremities without clubbing, cyanosis, or edema. No obvious deformities. NEUROLOGICAL: Awake and alert and oriented 3. Motor grossly within normal limits. Five out of 5 muscle strength in the arms and legs. Normal speech. PSYCHIATRIC: Appropriate mood and affect; insight and judgment normal. (Dmitri Montaño MD R2) A/P Assessment and Plan 61-year-old female HIV, COPD, chronic abdominal pain presents with findings concerning for gallbladder disease. Gen. surgery consult and plan as discussed below. Discharge Planning Today (Dmitri Montaño MD R2) Attending Attestation Patient seen and examined. Case reviewed and discussed with the resident team. Agree with plan of care as discussed with me and documented in the resident note. (Amairani Montaño MD) Problem List: (1) Cholecystitis Status: Acute Plan: Gen. surgery consult Postoperative day #2 laparoscopic cholecystectomy/EGD Advance diet per surgery Medications: Bowel regimen for constipation per protocol Imaging: HIDA negative for pain by gallbladder EF 30% which could be consistent with biliary dyskinesia. (2) HIV disease Status: Chronic Plan: Patient is on ARV at home and sees HIV specialist noted above. She states her last CD4 count was excellent. Continue ARV in hospital (3) Dry eyes, bilateral Status: Chronic Plan: Continue Restasis (4) COPD (chronic obstructive pulmonary disease) Status: Chronic Plan: Albuterol every 4 hours as needed nebulizer Add albuterol inhaler as indicated Consider referral for further controller medications as outpatient (5) Neuropathy Status: Chronic Plan: This is chronic. Patient is on no specific medication for this at this time. We'll monitor. likely due to HIV disease and treatment (6) Anxiety Status: Acute Plan: Continue amitriptyline (7) Iron deficiency anemia Status: Acute Plan: per pts report she had chronic blood loss in the past and is improved now. will not have any blood transfusions (8) Fluids/Electrolytes/Nutrition/Prophylaxis Status: Acute Plan: Fluids: Tolerating by mouth Electrolytes: monitor and replete as needed Nutrition: Per general surgery, currently regular DVT Prophylaxis: Early ambulation. Holding anticoagulation due to possible sx GI Prophylaxis: not indicated (Dmitri Montaño MD R2) Problem Qualifiers (1) COPD (chronic obstructive pulmonary disease): Qualified Code: J44.9 - Chronic obstructive pulmonary disease, unspecified COPD type (2) Iron deficiency anemia: Qualified Code: D50.0 - Iron deficiency anemia due to chronic blood loss Dmitri Montaño MD R2 Mar 07, 2017 11:48 Amairani Montaño MD Mar 07, 2017 11:53
[2017-03-07 12:00] VITALS: BP 126/88; PULSE 86; RESP 18; TEMP 98.3; O2SAT 99
--- NOTE | 2017-03-07 12:00 | HHI.DCPOC ---
Discharge Care Plan Diagnosis: (1) Cholecystitis Goals to Promote Your Health * To prevent worsening of your condition and complications * To maintain your health at the optimal level Directions to Meet Your Goals Take your medications as prescribed Follow your dietary instruction Follow activity as directed Keep your appointments as scheduled Take your immunizations and boosters as scheduled If your symptoms worsen call your PCP, if no PCP go to Urgent Care Center or Emergency Room Smoking is Dangerous to Your Health. Avoid second hand smoke Call the 24-hour hour crisis hotline for domestic abuse at Dmitri Montaño MD R2 Mar 07, 2017 12:00
--- NOTE | 2017-03-07 12:03 | HHI.DS ---
Discharge Summary Admission Date Mar 03, 2017 at 06:45 Discharge Date: Mar 07, 2017 Admitting Diagnosis RUQ abdominal pain, Cholecystitis. (1) Cholecystitis Diagnosis: Principal Plan: Gen. surgery consult Postoperative day #2 laparoscopic cholecystectomy/EGD Advance diet per surgery Medications: Bowel regimen for constipation per protocol Imaging: HIDA negative for pain by gallbladder EF 30% which could be consistent with biliary dyskinesia. (2) HIV disease Diagnosis: Secondary Plan: Patient is on ARV at home and sees HIV specialist noted above. She states her last CD4 count was excellent. Continue ARV in hospital (3) Dry eyes, bilateral Diagnosis: Secondary Plan: Continue Restasis (4) COPD (chronic obstructive pulmonary disease) Diagnosis: Secondary Plan: Albuterol every 4 hours as needed nebulizer Add albuterol inhaler as indicated Consider referral for further controller medications as outpatient (5) Neuropathy Diagnosis: Secondary Plan: This is chronic. Patient is on no specific medication for this at this time. We'll monitor. likely due to HIV disease and treatment (6) Anxiety Diagnosis: Secondary Plan: Continue amitriptyline (7) Iron deficiency anemia Diagnosis: Secondary Plan: per pts report she had chronic blood loss in the past and is improved now. will not have any blood transfusions (8) Fluids/Electrolytes/Nutrition/Prophylaxis Diagnosis: Secondary Plan: Fluids: Tolerating by mouth Electrolytes: monitor and replete as needed Nutrition: Per general surgery, currently regular DVT Prophylaxis: Early ambulation. Holding anticoagulation due to possible sx GI Prophylaxis: not indicated Consultants Gen. surgery Procedures Cholecystectomy EGD Brief History Ms. Solis is a 53-year-old female with a history significant for HIV, hypertension, COPD, anxiety, and neuropathy who presents to the ED after a night of severe epigastric and back pain. She describes the pain as excruciating , 12/10 in severity, achy, and associated with a meal. She had at 8:30pm corned beef and potatoes and this was her most recent meal. She had 2 episodes of vomiting at home and one episode of vomiting in the ED. He did not look at any vomitus but the ED physician stated it looked bilious on signout. She has a history of chronic left abdominal pain which was worked up in [address] scan which was negative, and she asserts that this pain is different. Denies fever, chills. She has shortness of breath at baseline and this has not changed. Chronic neck and back pain due to bulging disc has not changed either. She had episodes of vomiting. She denies any blood in her stools. She has had abdominal surgery for and exploratory laparotomy for cyst of the ovary, but has not had her gallbladder removed. Her last office visit was January [address] Loya in the [facility]. Gastroenterology work-up for left abd pain last year - constipated, no other abnormalities. Stools usually soft, uses enemas once every 3-4 months. Her last stool was yesterday evening and it was "hard pellets" and look like stones. She tried multiple medications to relieve her symptoms including and an acid, baking soda, enema, Pepto-Bismol without any relief. Come in to the ED due to her intractable pain. CBC/BMP: 03/07/17 0709 03/07/17 0709 Significant Findings Laboratory Tests Test 03/06/17 03/07/17 04:31 07:09 Hemoglobin 11.1 GM/DL 11.1 GM/DL (11.6-15.3) (11.6-15.3) Hematocrit 34.3 % (35.0-46.0) Mean Corpuscular Hemoglobin 26.8 PG 26.2 PG (27.0-34.0) (27.0-34.0) Neutrophils (%) (Auto) 71.0 % (16.0-70.0) Sodium Level 134 MEQ/L 135 MEQ/L (136-145) (136-145) Estimat Glomerular Filtration 68 ML/MIN (>89) 54 ML/MIN (>89) Rate Aspartate Amino Transf 52 U/L (15-37) (AST/SGOT) Alanine Aminotransferase 64 U/L (10-53) (ALT/SGPT) Albumin 3.3 GM/DL (3.4-5.0) Mean Corpuscular Hemoglobin 31.6 % Concent (32.0-36.0) Lymphocytes (%) (Auto) 57.8 % (9.0-44.0) Neutrophils # (Auto) 1.4 TH/MM3 (1.8-7.7) Creatinine 1.22 MG/DL (0.50-1.00) Random Glucose 109 MG/DL (74-106) Imaging Last Impressions Hepatobiliary Scan Nuclear Medicine 03/04/17 0000 Signed Impressions: Service Date/Time: Saturday, March 04, 2017 10:01 - CONCLUSION: Negative exam. Red Ayala MD Gall Bladder Ultrasound 03/03/17 0000 Signed Impressions: Service Date/Time: Friday, March 03, 2017 08:08 - CONCLUSION: On a few images there is questionable pericholecystic fluid although the gallbladder wall is normal and there are no gallstones noted. Mildly prominent CBD at 8 mm. Kishore Tirado MD Abdomen/Pelvis CT 03/03/17 0000 Signed Impressions: Service Date/Time: Friday, March 03, 2017 03:51 - CONCLUSION: 1. There is some distention of the biliary tree with intra-and extra prominence as well as mild gallbladder distention as above. CBD measures upwards of 8 mm in diameter. If patient's symptoms are referable to right upper abdominal quadrant, HIDA scan may be useful to evaluate biliary function. 2. Large amount of stool throughout the colon characteristic of some degree of constipation. Red Ayala MD PE at Discharge GENERAL: Thin, well appearing -[place] female, lying in bed comfortably. SKIN: Warm and dry. Abdominal surgical incisions well healing. clean dry and intact. HEAD: Atraumatic. Normocephalic. EYES: Pupils equal and round. No scleral icterus. No injection or drainage. CARDIOVASCULAR: Regular rate and rhythm. No murmurs, gallops, or rubs. RESPIRATORY: No accessory muscle use. Clear to auscultation without rales or rhonchi, no gallop, no crackles. Breath sounds equal bilaterally. GASTROINTESTINAL: Abdomen soft, mildly tender at umbilicus, bowel sounds are normal. The abdomen is nondistended. No guarding. MUSCULOSKELETAL: Extremities without clubbing, cyanosis, or edema. No obvious deformities. NEUROLOGICAL: Awake and alert and oriented 3. Motor grossly within normal limits. Five out of 5 muscle strength in the arms and legs. Normal speech. PSYCHIATRIC: Appropriate mood and affect; insight and judgment normal. Hospital Course Gen. surgery was consulted for concern for gallbladder disease. Patient underwent cholecystectomy and EGD on 03/05. The EGD showed mild gastritis. Postoperatively, the patient recovered very well. He was ambulating and voiding and passing gas. She had not had a bowel movement, but her pain was controlled and she was cleared for discharge by general surgery. She was discharged home with a bowel regimen, pain medications, Protonix and instructions for follow-up with general surgery and her PCP. Pt Condition on Discharge: Fair Discharge Disposition: Disch w/ Home Health Serv Discharge Instructions DIET: Follow Instructions for: As Tolerated, No Restrictions Activities you can perform: See Additionl Instruction Other Activity Instructions: per PT Follow up Referrals: PCP Follow-up - 1 Week Surgical - 10 Days with Benjamin Souza MD New Medications: Oxycodone-Acetaminophen (Oxycodone-Acetaminophen) 5-325 mg Tab 1 TAB PO Q6H PRN pain scale 1-5 #10 TAB Sennosides-Docusate Sodium (Senna Plus 8.6-50 mg) 1 Tab Tab 1 TAB PO BID #30 TAB Continued Medications: Jkrpygpo-Jccjahmtxnmf-Rsqncvfafw (Triumeq) 600-50-300 Mg Tab 1 TAB PO DAILY Hazardous agent; use appropriate precautions for handling & disposal. Mgmt Viral Infection #30 Ref 0 TAB Deveupxe-Fbniearshpes-Dhhgqsqsrf (Triumeq) 600-50-300 Mg Tab 1 TAB PO HS Hazardous agent; use appropriate precautions for handling & disposal. Mgmt Viral Infection #30 Ref 0 TAB Albuterol 8.5 GM Inh (Proair Hfa 8.5 GM Inh) 90 Mcg/Act Aer 1 PUFF INH Q4H 108 mcg/actuation PRN SHORTNESS OF BREATH #1 Ref 11 INHALER Amitriptyline (Amitriptyline) 50 Mg Tab 50 MG PO HS #30 Ref 11 TAB Cyclosporine Opth 0.05% (Restasis Opth 0.05%) 0.05% Emul 1 DROP EACH EYE BID Dry Eye #1 Ref 0 BOX Ferrous Gluconate (Iron) 27 Mg Tab 65 MG PO EVERY OTHER DAY Fluticasone Nasal [place] (Fluticasone Nasal [place]) 50 Mcg/Act Naspr 1 SPRAY EACH NARE PRN 50 mcg/spray Allergy Management #1 Ref 11 BOTTLE Hydrocodone ER (Hysingla ER) 20 Mg Bernard 10 MG PO half tab daily Hypromellose Opth Drops (Genteal Mild To Moderate Opth Drops) 0.3% Drops 1 DROP EACH EYE PRN PRN DRY EYE #15 Ref 0 ML Losartan (Losartan) 25 Mg Tab 25 MG PO DAILY Blood Pressure Management #30 Ref 11 TAB Multiple Vitamins W/ Minerals (Centravites 50 Plus) 1 Tab Tab 1 TAB PO DAILY Vitamin B Complex Vit C No.4 (Super B Complex) 150 Mg Tablet 1 TAB PO DAILY Dmitri Montaño MD R2 Mar 07, 2017 12:03
[2017-03-07] MEDS ORDERED: PANT40TA3 PO (12:04)
== END 2017-03-07 16:13 | disposition home or self-care (01) ==
LOC: NEPC 01:38 → NEDA 06:45 → N06B 09:14
PROVIDERS: ADMIT Family Medicine; ATTEND Family Medicine
PROC: 0FT44ZZ Resection of Gallbladder, Percutaneous Endoscopic Approach (ICD-10-PCS; principal; 2017-03-03)
PROC: 0DJ08ZZ Inspection of Upper Intestinal Tract, Via Natural or Artificial Opening Endoscopic (ICD-10-PCS; 2017-03-03)
DX: K80.10 Calculus of gallbladder with chronic cholecystitis without obstruction (principal); K20.9 Esophagitis, unspecified; K29.70 Gastritis, unspecified, without bleeding; Z21 Asymptomatic human immunodeficiency virus [HIV] infection status; H04.123 Dry eye syndrome of bilateral lacrimal glands; J44.9 Chronic obstructive pulmonary disease, unspecified; G62.9 Polyneuropathy, unspecified; F41.9 Anxiety disorder, unspecified; D50.0 Iron deficiency anemia secondary to blood loss (chronic); Z87.891 Personal history of nicotine dependence; Z79.899 Other long term (current) drug therapy
CPT/HCPCS: 00790; 43235; 47562; 74177; 76705; 78227; 80048; 80053; 81001; 82150; 83690; 85025; 85610; 85730; 88304; 93005; 94150; 96361; 96374; 96375; 96376; 97110; 97116; 97163; 97530; 99285; A9537; C9113; G0378; G8987; G8988; J0131; J0690; J2250; J2270; J2405; J2805; J3010; J7030; J7040; J7120; Q9967

== ENCOUNTER → 2017-04-03 | Outpatient (CLI) | payer MEDICARE, MEDICAID ==
[~2017-04-03] MED LIST changes: -BENA25TA6 PO; +OXYC1TAB63 PO; +PANT40TA3 PO; +REST0.05 EACH EYE; +SENN1TAB PO
[2017-04-03 10:37] LABS: AUTOMATED NEUTROPHIL # 3.9 TH/MM3 (1.8-7.7); BASOPHIL % 0.6 % (0.0-2.0); EOSINOPHIL % 0.5 % (0.0-4.0); HEMATOCRIT 35.5 % (35.0-46.0); HEMO FLAGS DIFF FINAL; LYMPHOCYTE # 1.3 TH/MM3 (1.0-4.8); MEAN CELL VOLUME 83.7 FL (80.0-100.0); MEAN CORPUSCULAR HEMOGLOBIN 27.5 PG (27.0-34.0); MEAN CORPUSCULAR HGB CONC 32.8 % (32.0-36.0); MONO % 7.5 % (0.0-8.0); NEUT % 68.4 % (16.0-70.0); PLATELET COUNT 178 TH/MM3 (150-450); RED BLOOD COUNT 4.24 MIL/MM3 (4.00-5.30); RED CELL DISTRIBUTION WIDTH 15.7 % (11.6-17.2); WHITE BLOOD COUNT 5.7 TH/MM3 (4.0-11.0)
[2017-04-03 10:51] LABS: BICARBONATE 25.5 MEQ/L (21.0-32.0); POTASSIUM 4.4 MEQ/L (3.5-5.1)
[2017-04-03 11:10] LABS: BLOOD, URINE SMALL (NEG); GLUCOSE,URINE NEG (NEG); KETONE, URINE NEG (NEG); NITRITE,URINE NEG (NEG); SQUAMOUS EPITHELIAL CELL URINE 1 /hpf (0-5); URINE COLOR YELLOW (YELLW/STRAW)
== END ==
LOC: CLAB 10:12
PROVIDERS: ATTEND Internal Medicine Nephrology
DX: N18.3 Chronic kidney disease, stage 3 (moderate) (principal)
CPT/HCPCS: 36415; 80069; 81001; 85025

== ENCOUNTER → 2017-04-24 | Outpatient (CLI) | payer MEDICARE, MEDICAID ==
[2017-04-24 08:47] LABS: AUTOMATED NEUTROPHIL # 1.1 TH/MM3 (1.8-7.7); BASOPHIL % 0.5 % (0.0-2.0); EOSINOPHIL % 1.3 % (0.0-4.0); HEMATOCRIT 36.4 % (35.0-46.0); HEMO FLAGS DIFF FINAL; LYMPH % 54.6 % (9.0-44.0); LYMPHOCYTE # 1.7 TH/MM3 (1.0-4.8); MEAN CELL VOLUME 84.4 FL (80.0-100.0); MEAN CORPUSCULAR HEMOGLOBIN 26.6 PG (27.0-34.0); MEAN CORPUSCULAR HGB CONC 31.5 % (32.0-36.0); MONO % 9.8 % (0.0-8.0); NEUT % 33.8 % (16.0-70.0); PLATELET COUNT 225 TH/MM3 (150-450); RED BLOOD COUNT 4.31 MIL/MM3 (4.00-5.30); RED CELL DISTRIBUTION WIDTH 15.3 % (11.6-17.2); WHITE BLOOD COUNT 3.2 TH/MM3 (4.0-11.0)
[2017-04-24 09:11] LABS: ALT (GPT) 23 U/L (10-53); ANION GAP 6 MEQ/L (5-15); AST (GOT) 15 U/L (15-37); BICARBONATE 27.9 MEQ/L (21.0-32.0); BLOOD UREA NITROGEN 14 MG/DL (7-18); CHLORIDE 102 MEQ/L (98-107); GLOMERULAR FILTRATION RATE 55 ML/MIN (>89); GLUCOSE,FASTING 89 MG/DL (74-99); POTASSIUM 3.9 MEQ/L (3.5-5.1); SODIUM (NA) 136 MEQ/L (136-145)
[2017-04-24 09:14] LABS: ALKALINE PHOSPHATASE 97 U/L (45-117); TOTAL BILIRUBIN ADULT 0.4 MG/DL (0.2-1.0)
[2017-04-26 03:51] LABS: CD4/CD8 RATIO 1.3 (0.86-5.00)
[2017-04-26 13:51] LABS: HIV RNA COPIES LESS THAN 20.0 (<20); HIV RNA LOG COPIES LESS THAN 1.30 (<1.30)
== END ==
LOC: CLAB 08:18
PROVIDERS: ATTEND Internal Medicine Infectious Disease
DX: B00.9 Herpesviral infection, unspecified (principal); B20 Human immunodeficiency virus [HIV] disease; J44.9 Chronic obstructive pulmonary disease, unspecified; B02.9 Zoster without complications; Z79.2 Long term (current) use of antibiotics; Z11.59 Encounter for screening for other viral diseases
CPT/HCPCS: 36415; 80053; 85025; 86355; 86357; 86359; 86360; 86803; 87536

== ENCOUNTER → 2017-10-29 | Outpatient (CLI) | payer MEDICARE, MEDICAID ==
[2017-10-29 07:59] LABS: AUTOMATED NEUTROPHIL # 1.1 TH/MM3 (1.8-7.7); BASOPHIL % 0.5 % (0.0-2.0); EOSINOPHIL % 1.3 % (0.0-4.0); HEMATOCRIT 36.4 % (35.0-46.0); HEMOGLOBIN 11.9 GM/DL (11.6-15.3); LYMPHOCYTE # 1.8 TH/MM3 (1.0-4.8); MEAN CELL VOLUME 82.2 FL (80.0-100.0); MEAN CORPUSCULAR HEMOGLOBIN 26.8 PG (27.0-34.0); MEAN CORPUSCULAR HGB CONC 32.6 % (32.0-36.0); MEAN PLATELET VOLUME 8.7 FL (7.0-11.0); MONO % 7.9 % (0.0-8.0); MONOCYTE # 0.3 TH/MM3 (0-0.9); NEUT % 33.3 % (16.0-70.0); PLATELET COUNT 214 TH/MM3 (150-450); RED BLOOD COUNT 4.43 MIL/MM3 (4.00-5.30); RED CELL DISTRIBUTION WIDTH 15.6 % (11.6-17.2); WHITE BLOOD COUNT 3.2 TH/MM3 (4.0-11.0)
[2017-10-29 08:25] LABS: ALBUMIN 3.8 GM/DL (3.4-5.0); AST (GOT) 17 U/L (15-37); BICARBONATE 29.3 MEQ/L (21.0-32.0); BLOOD UREA NITROGEN 12 MG/DL (7-18); CALCIUM 8.5 MG/DL (8.5-10.1); CHLORIDE 101 MEQ/L (98-107); CREATININE 1.25 MG/DL (0.50-1.00); GLOMERULAR FILTRATION RATE 52 ML/MIN (>89); GLUCOSE,FASTING 94 MG/DL (74-99); SODIUM (NA) 137 MEQ/L (136-145)
[2017-10-29 08:26] LABS: ALT (GPT) 19 U/L (10-53)
[2017-10-29 08:28] LABS: ALKALINE PHOSPHATASE 100 U/L (45-117); TOTAL BILIRUBIN ADULT 0.4 MG/DL (0.2-1.0); TOTAL PROTEIN 8.1 GM/DL (6.4-8.2)
== END ==
LOC: CLAB 07:29
PROVIDERS: ATTEND Internal Medicine Infectious Disease
DX: B20 Human immunodeficiency virus [HIV] disease (principal); Z79.2 Long term (current) use of antibiotics
CPT/HCPCS: 36415; 80053; 85025; 86355; 86357; 86359; 86360; 87536

== ENCOUNTER → 2017-11-08 | Outpatient (CLI) | payer MEDICARE, MEDICAID ==
[~2017-11-08] MED LIST changes: +CYCL10TA PO; +MEDR4PAK PO; +NYST1000 SWISH-SWAL
[2017-11-08 08:41] LABS: BASOPHIL % 0.7 % (0.0-2.0); EOSINOPHIL % 1.3 % (0.0-4.0); HEMATOCRIT 37.9 % (35.0-46.0); HEMOGLOBIN 12.2 GM/DL (11.6-15.3); MEAN CELL VOLUME 83.3 FL (80.0-100.0); MEAN CORPUSCULAR HEMOGLOBIN 26.8 PG (27.0-34.0); MEAN CORPUSCULAR HGB CONC 32.2 % (32.0-36.0); MEAN PLATELET VOLUME 8.5 FL (7.0-11.0); MONO % 9.2 % (0.0-8.0); MONOCYTE # 0.3 TH/MM3 (0-0.9); NEUT % 29.8 % (16.0-70.0); PLATELET COUNT 210 TH/MM3 (150-450); RED BLOOD COUNT 4.54 MIL/MM3 (4.00-5.30); RED CELL DISTRIBUTION WIDTH 15.4 % (11.6-17.2); WHITE BLOOD COUNT 3.4 TH/MM3 (4.0-11.0)
[2017-11-08 09:02] LABS: ALBUMIN 3.7 GM/DL (3.4-5.0); BICARBONATE 28.9 MEQ/L (21.0-32.0); CALCIUM 9.6 MG/DL (8.5-10.1); CREATININE 1.12 MG/DL (0.50-1.00)
[2017-11-08 09:03] LABS: PHOSPHORUS 3.4 MG/DL (2.5-4.9)
[2017-11-08 09:04] LABS: BACTERIA, URINE RARE /hpf; BILIRUBIN, URINE NEG (NEG); BLOOD, URINE NEG (NEG); GLUCOSE,URINE NEG (NEG); KETONE, URINE NEG (NEG); NITRITE,URINE NEG (NEG); PH, URINE 5.5 (5.0-8.5); SQUAMOUS EPITHELIAL CELL URINE 1 /hpf (0-5); URINE COLOR YELLOW (YELLW/STRAW); URINE LEUKOCYTE ESTERASE SMALL (NEG)
== END ==
LOC: CLAB 08:03
PROVIDERS: ATTEND Internal Medicine Nephrology
DX: N18.3 Chronic kidney disease, stage 3 (moderate) (principal)
CPT/HCPCS: 36415; 80069; 81001; 85025

== ENCOUNTER 2017-11-10 14:38 | Emergency (ER) | payer MEDICAID, MEDICARE ==
[~2017-11-10] VITALS: Ht 175.3 cm; Wt 68.0 kg
[~2017-11-10 14:38] MED LIST changes: -CYCL10TA PO; -MEDR4PAK PO; -NYST1000 SWISH-SWAL
[2017-11-10 14:41] VITALS: BP 122/74; PULSE 112; RESP 16; TEMP 98.2; O2SAT 96
--- NOTE | 2017-11-10 15:45 | RADRPT ---
EXAM DATE/TIME: 11/10/2017 15:18 [place] COMPARISON: No previous studies available for comparison. INDICATIONS : Right radiating hip pain. MEDICAL HISTORY : Chronic obstructive pulmonary disease. Hypertension. Arthritis. Pneumonia. Dyspnea. Fibromyalgia. HIV +. Anemia. Osteoarthritis. SURGICAL HISTORY : section. ENCOUNTER: Initial ACUITY: 1 day PAIN SCORE: 10/10 LOCATION: Right hip FINDINGS: The femoral head is well situated within the acetabular fossa. There are mild arthritic changes. No a cute fracture is identified. No destructive lesion is seen. CONCLUSION: 1. No acute bony abnormality identified. Kevin Snowden MD on November 10, 2017 at 15:43 Board Certified Radiologist. This report was verified electronically.
[2017-11-10] MEDS ORDERED: CYCL10TA PO (16:23)
[2017-11-10] MEDS ORDERED: MEDR4PAK PO (16:23)
[2017-11-10] MEDS ORDERED: NYST1000 SWISH-SWAL (16:23)
--- NOTE | 2017-11-10 16:23 | PD ---
Physical Exam Date Seen by Provider: Nov 10, 2017 Narrative Patient presents with right hip pain. This actually more low back pain radiating to the right leg. She has a history of sciatica. She has been suffering with a sciatica for the last several days but bent over to pick something up today had acute exacerbation of her symptoms. Data Data Last Documented VS Vital Signs Date Time Temp Pulse Resp B/P (MAP) Pulse Ox O2 Delivery O2 Flow Rate FiO2 11/10/17 14:41 98.2 112 16 122/74 (90) 96 Orders Orders Hip, Uni(Ap&Lat) Wo Ap Pelvis (11/10/17 ) MDM Supervised Visit with QUEENIE: Yes Narrative Course I, Dr. Cohen, have reviewed the advance practice practitioner's documentation and am in agreement, met with the patient face to face, made the diagnosis, and the medical decision making was done by me. *My assessment and Findings: Patient is neurologically intact. Please see Rajesh Hernandez PA-C's note for results of laboratory and radiographic evaluation, ED course, final diagnosis and disposition Deneen Cohen MD Nov 10, 2017 16:23
--- NOTE | 2017-11-10 16:28 | PD ---
HPI Chief Complaint: Hip Injury Time Seen by Provider: 16:09 Travel History International Travel<30 days: No Contact w/Intl Traveler<30days: No Traveled to known affect area: No History of Present Illness HPI Patient comes to the emergency department for evaluation of right low back pain going down her right lower extremity ongoing for 3 days. Patient states that she has been nursing her sciatica and she took hydrocodone for that she is prescribed that seemed to help her pain some however today she bent over to poor out some water when she felt something pop in her right hip causing the pain to be worse. Patient denies any trauma, fevers, loss change in bowel or bladder, numbness or tingling anywhere, weakness, or abdominal pain. Pain is worse with certain movement. Severity mild to moderate. PFSH Past Medical History Anemia: Yes Arthritis: Yes Blood Disorders: Yes (ANEMIA) Anxiety: No Depression: No Cancer: No Cardiovascular Problems: Yes High Cholesterol: No COPD: Yes Diabetes: No Diminished Hearing: No Endocrine: No Gastrointestinal Disorders: Yes ( EXPLORATORY ABSCESS DRAIN) Genitourinary: No Hypertension: Yes Immune Disorder: Yes (HIV+) Musculoskeletal: Yes (OA) Neurologic: Yes (idiopathic progressive polyneuropathy) Psychiatric: No Reproductive: Yes (C/S) Respiratory: Yes Pneumonia: Yes Thyroid Disease: No ?: Not Menopausal: Yes Past Surgical History Abdominal Surgery: Yes (EXP LAP) Section: Yes Other Surgery: Yes (right axilla biopsy) Social History Alcohol Use: Yes (OCCASSIONAL) Tobacco Use: No (quit 2009) Substance Use: No Allergies-Medications (Allergen,Severity, Reaction): Coded Allergies: hydromorphone (Unverified Allergy, Mild, 11/10/17) PT STATES SHE GETS VERY HOT AND FEELS LIKE HER HEAD IS GOING TO EXPLODE. Reported Meds & Prescriptions Reported Meds & Active Scripts Active Nystatin Liq 100,000 unit/ml Susp 5 Ml SWISH-SWAL QID Flexeril (Cyclobenzaprine HCl) 10 Mg Tab 10 Mg PO Q8HR Medrol Dosepak (Methylprednisolone) 4 Mg Dspk 4 Mg PO DIRECTED Per Pharmacist direction Oxycodone-Acetaminophen 5-325 mg Tab 1 Tab PO Q6H PRN Pantoprazole (Pantoprazole Sodium) 40 Mg Tab 40 Mg PO DAILY Senna Plus 8.6-50 mg (Sennosides-Docusate Sodium) 1 Tab Tab 1 Tab PO BID Fluticasone Nasal [place] 50 Mcg/Act Naspr 1 [place] EACH NARE PRN 50 mcg/spray Losartan (Losartan Potassium) 25 Mg Tab 25 Mg PO DAILY Amitriptyline (Amitriptyline HCl) 50 Mg Tab 50 Mg PO HS Proair Hfa 8.5 GM Inh (Albuterol Sulfate) 90 Mcg/Act Aer 1 Puff INH Q4H PRN 108 mcg/actuation Reported Triumeq (Kcmykqvb-Golzeabayuxm-Erxoesysva) 600-50-300 Mg Tab 1 Tab PO HS Hazardous agent; use appropriate precautions for handling & disposal. Restasis Opth (Cyclosporine Opth) 0.05% Emul 1 Drop EACH EYE BID Hysingla ER (Hydrocodone ER) 20 Mg Bernard 10 Mg PO HALF TAB DAILY Iron (Ferrous Gluconate) 27 Mg Tab 65 Mg PO EVERY OTHER DAY Super B Complex (Vitamin B Complex Vit C No.4) 150 Mg Tablet 1 Tab PO DAILY Centravites 50 Plus (Multiple Vitamins W/ Minerals) 1 Tab Tab 1 Tab PO DAILY Triumeq (Fueovfwp-Pkyxlupnubqo-Ujzpxreyhz) 600-50-300 Mg Tab 1 Tab PO DAILY Hazardous agent; use appropriate precautions for handling & disposal. Review of Systems Except as stated in HPI: all other systems reviewed are Neg Physical Exam Narrative GENERAL: Well-developed, well nourished, in no acute distress, and non-ill appearing. SKIN: Focused skin assessment warm and dry. HEAD: Atraumatic. Normocephalic. EYES: Pupils equal and round. EOMI. No scleral icterus. No injection or drainage. ENT: No nasal bleeding or discharge. Mucous membranes pink and moist. NECK: Trachea midline. Supple. No nuclear rigidity. CARDIOVASCULAR: Dorsal pulses 2+, intact, and equal bilaterally. RESPIRATORY: No accessory muscle use. No respiratory distress. MUSCULOSKELETAL: No obvious deformities. No clubbing. No cyanosis. No edema. Full range of motion. No tenderness or crepitus or midline of the lumbar spine. Patient reports tenderness palpation near right SI joint. Hip: FROM and equal BL with passive flexion, extension, Abduction, Adduction, and internal/external rotation. Pulses equal BL distal to injury. Capillary refill less than 2 seconds distal to injury and equal BL. FROM distal to injury and equal BL. Strength distal to injury equal BL. NV intact distal to injury and equal BL. Plantar flexion and dorsal flexion equal BL. Dorsal pulses equal BL. Sensation equal BL 1st web space. Straight leg test positive on right. NEUROLOGICAL: Awake and alert. No obvious cranial nerve deficits. Motor grossly within normal limits. Normal speech. PSYCHIATRIC: Appropriate mood and affect; insight and judgment normal. Data Data Last Documented VS Vital Signs Date Time Temp Pulse Resp B/P (MAP) Pulse Ox O2 Delivery O2 Flow Rate FiO2 11/10/17 14:41 98.2 112 16 122/74 (90) 96 Orders Orders Hip, Uni(Ap&Lat) Wo Ap Pelvis (11/10/17 ) Ed Discharge Order (11/10/17 16:21) Dexamethasone Inj (Decadron Inj) (11/10/17 16:30) Cyclobenzaprine (Flexeril) (11/10/17 16:30) MDM Medical Decision Making Medical Screen Exam Complete: Yes Emergency Medical Condition: Yes Interpretation(s) Last Impressions Hip X-Ray 11/10/17 0000 Signed Impressions: Service Date/Time: Friday, November 10, 2017 15:18 - CONCLUSION: 1. No acute bony abnormality identified. Kevin Snowden MD Differential Diagnosis Fracture, strain, dislocation, sciatica Narrative Course The patient presented complaining of back pain with radiation down leg. There was no history of recent fall or trauma. There was no evidence to support genitourinary etiology. There is also no evidence to suggest vascular pathology such as AAA dissection. No fevers or other evidence to suspect infectious processes, abscess, osteomyelitis etc. The patients neurological exam is normal with normal motor and sensory. There is no saddle paresthesias reported and no bowel or bladder incontinence or retention. I suspect the pain is mechanical in nature with sciatica. Clinical suspicion, plan of care and management was discussed with the patient. The patient was instructed to follow up with their health care provider. The patient was also instructed to return if the pain worsened, changed, or developed weakness or bowel or bladder trouble. The patient agreed with plan. Patient in no obvious distress upon re-evaluation. Patient reports that she has experienced thrush from steroids in the past, so I will prescribe nystatin swish and swallow for patient if symptoms start. All pertinent Radiology result( s) discussed with patient. Discussed patient with Dr. Cohen, who saw and evaluated the patient is in agreement with plan of care disposition.. Any questions/concerns in reference to patient diagnosis/condition discussed and clarified prior to patient's discharge and/or orthopedics. Reinforced sheer importance of close follow up with patient's primary physician or primary care clinic. Instructed patient to return to ED immediately, if symptoms return/ worsen. Patient showed understanding of above instructions. Further instructions and recommendations were detailed in discharge paperwork. Patient ambulated without difficulty out of ED at discharge. Diagnosis Primary Impression: Sciatica of right side Referrals: Bean Zapata Jr., MD Patient Instructions: General Instructions, Sciatica (ED) Additional Instructions: Follow-up with your primary care physician and/or orthopedic this week for reevaluation. Take all medication as prescribed. Return to the emergency department if symptoms get worse. Med/Other Pt SpecificInfo: Prescription(s) given Scripts Nystatin Liq (Nystatin Liq) 100,000 unit/ml Susp 5 ML SWISH-SWAL QID for Infection, #100 ML 0 Refills Prov: Deneen Cohen MD 11/10/17 Cyclobenzaprine (Flexeril) 10 Mg Tab 10 MG PO Q8HR for Muscle Spasm, #90 TAB 0 Refills Prov: Deneen Cohen MD 11/10/17 Methylprednisolone Dosepak (Medrol Dosepak) 4 Mg Dspk 4 MG PO DIRECTED, #1 DSPK 0 Refills Per Pharmacist direction Prov: Deneen Cohen MD 11/10/17 Disposition: 01 DISCHARGE HOME Condition: Stable Milad Hernandez Nov 10, 2017 16:28
[2017-11-10] MEDS ORDERED: DEXAMETHASONE SOD PHOS 20 MG/5 ML VIAL IM ONE (16:30)
[2017-11-10] MEDS ORDERED: CYCLOBENZAPRINE HCL 10 MG TAB PO ONE (16:30)
== END 2017-11-10 17:01 | disposition home or self-care (01) ==
LOC: NEPD 14:38
DX: M54.31 Sciatica, right side (principal); I10 Essential (primary) hypertension; M19.90 Unspecified osteoarthritis, unspecified site; J44.9 Chronic obstructive pulmonary disease, unspecified; G60.3 Idiopathic progressive neuropathy; Z21 Asymptomatic human immunodeficiency virus [HIV] infection status; Z87.891 Personal history of nicotine dependence
CPT/HCPCS: 73502; 96372; 99283; J1100